=== PATIENT | female | born 1940 | race Native Hawaiian/Other Pacific Islander ===

== ENCOUNTER 2016-03-18 10:14 | Inpatient (IN) | payer OTHER ==
[~2016-03-18 10:14] MED LIST: ACET-206 PO; ALLO100T22 PO; ASA LO-DOSE81 MG PO; CALCIUM + D600 MG PO; CELEBREX200 MG PO; COUGH100 MG/5 M PO; FURO40TA93 PO; MAGNSUS68 PO; METOPROLOL25 MG PO; POLY3350 PO; RANITIDINE150 M1 PO; SENNA-PLUS1 TAB PO; VITAMIN C500 M6 PO
[2016-05-18] MEDS ORDERED: CALCIUM + D600 MG OR (10:34)
[2016-05-18] MEDS ORDERED: CELEBREX200 MG PO (10:34)
[2016-05-18] MEDS ORDERED: ISOS30TA17 PO (10:35)
[2016-05-18] MEDS ORDERED: CELEXA20 MG PO (10:35)
[2016-05-18] MEDS ORDERED: FURO40TA93 PO (10:36)
[2016-05-18] MEDS ORDERED: GABA300C2 PO (10:37)
[2016-05-18] MEDS ORDERED: MULTIVITAMIN OR (10:37)
[2016-05-18] MEDS ORDERED: OXYB5TAB56 PO (10:37)
[2016-05-18] MEDS ORDERED: LAXATIVE1 TAB OR (10:38)
[2016-05-18] MEDS ORDERED: SINGULAIR10 MG PO (10:39)
[2016-05-18] MEDS ORDERED: SYSTANE GEL1 ML OP (10:40)
[2016-05-18] MEDS ORDERED: ZANTAC300 MG PO (10:41)
[2016-05-18] MEDS ORDERED: ALLO100T22 PO (10:41)
[2016-05-18] MEDS ORDERED: FENT25DI TD (10:42)
[2016-05-18] MEDS ORDERED: VITAMIN C1 CH1 PO (10:42)
[2016-05-18] MEDS ORDERED: ACID REDUCER150 MG OR (17:12)
[2016-05-18] MEDS ORDERED: GUIATUSS100 MG/5 M PO (17:16)
[2016-05-18] MEDS ORDERED: MAGNSUS68 PO (17:17)
[2016-05-18] MEDS ORDERED: POLYETH GLYC3350 N1 OR (17:18)
[2016-05-18] MEDS ORDERED: TYLENOL325 MG OR (17:20)
[2016-05-18] MEDS ORDERED: VALTREX1 GM PO (17:21)
[2016-05-18] MEDS ORDERED: FLUT0.05 NAS (17:22)
[2016-05-18] MEDS ORDERED: ONDA4TAB3 PO (17:25)
[2016-05-18] MEDS ORDERED: HYDR25CA25 PO (17:26)
[2016-05-18] MEDS ORDERED: ARTIFI TEARS OP (17:28)
[2016-05-18] MEDS ORDERED: ALBUSOL IN (17:29)
[2016-05-18] MEDS ORDERED: HYDR-3182 PO (17:32)
== END 2016-04-18 08:00 | disposition still patient (30) ==
LOC: PAVC 10:14
PROVIDERS: ADMIT Internal Medicine
DX: Z51.89 Encounter for other specified aftercare (principal)

== ENCOUNTER 2016-04-18 09:00 | Inpatient (IN) | payer OTHER ==
[2016-05-18] MEDS ORDERED: CALCIUM + D600 MG OR ×2 (10:34)
[2016-05-18] MEDS ORDERED: CELEBREX200 MG PO ×2 (10:34)
[2016-05-18] MEDS ORDERED: CELEXA20 MG PO ×2 (10:35)
[2016-05-18] MEDS ORDERED: ISOS30TA17 PO ×2 (10:35)
[2016-05-18] MEDS ORDERED: FURO40TA93 PO ×2 (10:36)
[2016-05-18] MEDS ORDERED: MULTIVITAMIN OR ×2 (10:37)
[2016-05-18] MEDS ORDERED: OXYB5TAB56 PO ×2 (10:37)
[2016-05-18] MEDS ORDERED: GABA300C2 PO ×2 (10:37)
[2016-05-18] MEDS ORDERED: LAXATIVE1 TAB OR ×2 (10:38)
[2016-05-18] MEDS ORDERED: SINGULAIR10 MG PO ×2 (10:39)
[2016-05-18] MEDS ORDERED: SYSTANE GEL1 ML OP ×2 (10:40)
[2016-05-18] MEDS ORDERED: ALLO100T22 PO ×2 (10:41)
[2016-05-18] MEDS ORDERED: ZANTAC300 MG PO ×2 (10:41)
[2016-05-18] MEDS ORDERED: FENT25DI TD ×2 (10:42)
[2016-05-18] MEDS ORDERED: VITAMIN C1 CH1 PO ×2 (10:42)
[2016-05-18] MEDS ORDERED: ACID REDUCER150 MG OR ×2 (17:12)
[2016-05-18] MEDS ORDERED: GUIATUSS100 MG/5 M PO ×2 (17:16)
[2016-05-18] MEDS ORDERED: MAGNSUS68 PO ×2 (17:17)
[2016-05-18] MEDS ORDERED: POLYETH GLYC3350 N1 OR ×2 (17:18)
[2016-05-18] MEDS ORDERED: TYLENOL325 MG OR ×2 (17:20)
[2016-05-18] MEDS ORDERED: VALTREX1 GM PO ×2 (17:21)
[2016-05-18] MEDS ORDERED: FLUT0.05 NAS ×2 (17:22)
[2016-05-18] MEDS ORDERED: ONDA4TAB3 PO ×2 (17:25)
[2016-05-18] MEDS ORDERED: HYDR25CA25 PO ×2 (17:26)
[2016-05-18] MEDS ORDERED: ARTIFI TEARS OP ×2 (17:28)
[2016-05-18] MEDS ORDERED: ALBUSOL IN ×2 (17:29)
[2016-05-18] MEDS ORDERED: HYDR-3182 PO ×2 (17:32)
== END 2016-05-19 12:35 | disposition still patient (30) ==
LOC: PAVC 09:00
PROVIDERS: ADMIT Internal Medicine
DX: Z51.89 Encounter for other specified aftercare (principal)

== ENCOUNTER 2016-05-05 02:43 | Outpatient (CLI) | payer OTHER ==
[2016-05-18] MEDS ORDERED: CALCIUM + D600 MG OR (10:34)
[2016-05-18] MEDS ORDERED: CELEBREX200 MG PO (10:34)
[2016-05-18] MEDS ORDERED: CELEXA20 MG PO (10:35)
[2016-05-18] MEDS ORDERED: ISOS30TA17 PO (10:35)
[2016-05-18] MEDS ORDERED: FURO40TA93 PO (10:36)
[2016-05-18] MEDS ORDERED: OXYB5TAB56 PO (10:37)
[2016-05-18] MEDS ORDERED: MULTIVITAMIN OR (10:37)
[2016-05-18] MEDS ORDERED: GABA300C2 PO (10:37)
[2016-05-18] MEDS ORDERED: LAXATIVE1 TAB OR (10:38)
[2016-05-18] MEDS ORDERED: SINGULAIR10 MG PO (10:39)
[2016-05-18] MEDS ORDERED: SYSTANE GEL1 ML OP (10:40)
[2016-05-18] MEDS ORDERED: ZANTAC300 MG PO (10:41)
[2016-05-18] MEDS ORDERED: ALLO100T22 PO (10:41)
[2016-05-18] MEDS ORDERED: VITAMIN C1 CH1 PO (10:42)
[2016-05-18] MEDS ORDERED: FENT25DI TD (10:42)
[2016-05-18] MEDS ORDERED: ACID REDUCER150 MG OR (17:12)
[2016-05-18] MEDS ORDERED: GUIATUSS100 MG/5 M PO (17:16)
[2016-05-18] MEDS ORDERED: MAGNSUS68 PO (17:17)
[2016-05-18] MEDS ORDERED: POLYETH GLYC3350 N1 OR (17:18)
[2016-05-18] MEDS ORDERED: TYLENOL325 MG OR (17:20)
[2016-05-18] MEDS ORDERED: VALTREX1 GM PO (17:21)
[2016-05-18] MEDS ORDERED: FLUT0.05 NAS (17:22)
[2016-05-18] MEDS ORDERED: ONDA4TAB3 PO (17:25)
[2016-05-18] MEDS ORDERED: HYDR25CA25 PO (17:26)
[2016-05-18] MEDS ORDERED: ARTIFI TEARS OP (17:28)
[2016-05-18] MEDS ORDERED: ALBUSOL IN (17:29)
[2016-05-18] MEDS ORDERED: HYDR-3182 PO (17:32)
== END 2016-05-05 19:05 | disposition home or self-care (01) ==
LOC: LAB 02:43
DX: Z79.899 Other long term (current) drug therapy (principal); Z51.81 Encounter for therapeutic drug level monitoring
CPT/HCPCS: 36415; 82310

== ENCOUNTER 2016-05-18 09:39 | Inpatient (IN) | payer OTHER ==
[2016-05-18] VITALS (28 sets, daily range): BP systolic 80–139; BP diastolic 46–89; TEMP 98.3–100; Ht 149.9 cm; Wt 80.5 kg
[~2016-05-18] VITALS: Ht 149.9 cm; Wt 80.5 kg
[2016-05-18 10:26] LABS: PLATELET COUNT 201 K/uL (152-353)
[2016-05-18 10:29] LABS: POTASSIUM 3.2 mmol/L (3.6-5.2)
[2016-05-18] MEDS ORDERED: CALCIUM + D600 MG OR ×2 (10:34)
[2016-05-18] MEDS ORDERED: CELEBREX200 MG PO ×2 (10:34)
[2016-05-18] MEDS ORDERED: ISOS30TA17 PO ×2 (10:35)
[2016-05-18] MEDS ORDERED: CELEXA20 MG PO ×2 (10:35)
[2016-05-18 10:36] LABS: PARTIAL THROMBOPLASTIN TIME 22.6 SECONDS (24.5-33.6)
[2016-05-18] MEDS ORDERED: FURO40TA93 PO ×2 (10:36)
[2016-05-18] MEDS ORDERED: OXYB5TAB56 PO ×2 (10:37)
[2016-05-18] MEDS ORDERED: GABA300C2 PO ×2 (10:37)
[2016-05-18] MEDS ORDERED: MULTIVITAMIN OR ×2 (10:37)
[2016-05-18] MEDS ORDERED: LAXATIVE1 TAB OR ×2 (10:38)
[2016-05-18] MEDS ORDERED: SINGULAIR10 MG PO ×2 (10:39)
[2016-05-18] MEDS ORDERED: SYSTANE GEL1 ML OP ×2 (10:40)
[2016-05-18] MEDS ORDERED: ALLO100T22 PO ×2 (10:41)
[2016-05-18] MEDS ORDERED: ZANTAC300 MG PO ×2 (10:41)
[2016-05-18] MEDS ORDERED: FENT25DI TD ×2 (10:42)
[2016-05-18] MEDS ORDERED: VITAMIN C1 CH1 PO ×2 (10:42)
--- NOTE | 2016-05-18 13:45 | NUR ---
PT TO ICU VIA STRETCHER FROM ER. PT ASSISTED TO ICU BED 2. PT ALERT & ORIENTED TO SELF. AGUIAR TO BSD WITH DK YELLOW CL URINE TO BSD. IV NS AT 125 INFUSING INTO L AC INSYTE.
--- NOTE | 2016-05-18 14:15 | NUR ---
PT WITH NOTED,CHUNKS OF WHITE MATERIAL IN HER MOUTH & ON HER LIPS.MOUTH CARE & DENTURES CLEANED OF 'PECANS IWAS EATING LAST NIGHT' PER PT & KATHERYN VIVEROS HULLS.PT'S SWALLOWING CHECKED & IS INTACT.
--- NOTE | 2016-05-18 15:15 | NUR ---
ASSESSMENT COMPLETED.PT DENIES PAIN.
--- NOTE | 2016-05-18 17:00 | NUR ---
[facility] STAFF BROUGHT PT HER GLASSES.
[2016-05-18] MEDS ORDERED: ACID REDUCER150 MG OR ×2 (17:12)
[2016-05-18] MEDS ORDERED: GUIATUSS100 MG/5 M PO ×2 (17:16)
[2016-05-18] MEDS ORDERED: MAGNSUS68 PO ×2 (17:17)
[2016-05-18] MEDS ORDERED: POLYETH GLYC3350 N1 OR ×2 (17:18)
[2016-05-18] MEDS ORDERED: TYLENOL325 MG OR ×2 (17:20)
[2016-05-18] MEDS ORDERED: VALTREX1 GM PO ×2 (17:21)
[2016-05-18] MEDS ORDERED: FLUT0.05 NAS ×2 (17:22)
[2016-05-18] MEDS ORDERED: ONDA4TAB3 PO ×2 (17:25)
[2016-05-18] MEDS ORDERED: HYDR25CA25 PO ×2 (17:26)
[2016-05-18] MEDS ORDERED: ARTIFI TEARS OP ×2 (17:28)
[2016-05-18] MEDS ORDERED: ALBUSOL IN ×2 (17:29)
[2016-05-18] MEDS ORDERED: HYDR-3182 PO ×2 (17:32)
--- NOTE | 2016-05-18 18:26 | NUR ---
PT ASSITED WITH EATING SUPPER PER REGIS PRESSLEY LPN.
--- NOTE | 2016-05-18 20:04 | NUR ---
1900-Received pt resting in bed quietly. No distress noted. VSS per monitor. Resp even and non labored. Knapp to BSD. Assessment completed at this time. Non pitting edema noted. NS infusing at 125cc/hr to LAC via 18g. No s/s of infiltration at this time. Pt alert and oriented at this time. Bed in lowest position. Call light within reach. Will continue to monitor.
--- NOTE | 2016-05-18 20:07 | NUR ---
1929-Discontinued IV to RH due to bleeding. Attempted to start 22g to LFA x2 sticks. Unsuccessful at this time.
--- NOTE | 2016-05-18 22:16 | NUR ---
7981-Spoke with Dr. Gaviria at this time about slowing fluids down and potassium level. Orders given at this time. Will continue to monitor.
[2016-05-18 22:38] LABS: POTASSIUM 3.3 mmol/L (3.6-5.2)
--- NOTE | 2016-05-18 22:46 | NUR ---
Notified Dr. Gaviria of lab results. Orders given at this time.
[2016-05-19] VITALS (21 sets, daily range): BP systolic 90–141; BP diastolic 48–116; TEMP 98.4–98.7
--- NOTE | 2016-05-19 02:03 | NUR ---
Pt resting in bed with eyes closed. No distress noted at this time. Will continue to monitor.
[2016-05-19 06:25] LABS: POTASSIUM 3.6 mmol/L (3.6-5.2)
--- NOTE | 2016-05-19 07:00 | NUR ---
PT RESTING WITH HOPB UP. DENIES PAIN OR DISTRESS.
[2016-05-19 07:37] LABS: PLATELET COUNT 153 K/uL (152-353)
--- NOTE | 2016-05-19 08:30 | NUR ---
PT FED BREAKFAST. SWALLOWING INTACT. ATE APPROX 10%.
--- NOTE | 2016-05-19 09:10 | NUR ---
I&O'S REPORTED TO EHVINICIO LANDRY RN/LUPE MUHAMMAD.
--- NOTE | 2016-05-19 09:45 | NUR ---
SPEECH THERAPY IN TO EVALUATE PT.
--- NOTE | 2016-05-19 11:40 | NUR ---
DR MUHAMMAD IN TO SEE PT. NEW ORDERS.
--- NOTE | 2016-05-19 11:56 | NUR ---
PT IN WITH PT.
--- NOTE | 2016-05-19 14:00 | NUR ---
NURSING STUDENTS GAVE PT A BATH. ORAL AND PERICARE GIVEN.
--- NOTE | 2016-05-19 15:18 | NUR ---
FAMILY AT BEDSIDE.
--- NOTE | 2016-05-19 17:00 | NUR ---
PT RESTING ON SIDE WITH HOB UP, EYES CLOSED. O2 SAT 97%.
--- NOTE | 2016-05-19 18:00 | NUR ---
FED PT MEAL. SMALL SWALLOWS TEA NO COUGHING.
--- NOTE | 2016-05-19 19:48 | NUR ---
PT RECEIVING RESP TREATMENT. PT WITH NO COMPLAINTS. O2 ON AT 2L NC. PT WITH UNPRODUCTIVE COUGH. NS INFUSING AT 75 ML/HR. PT PREFERS ADDITIONAL BLANKETS TO HER LOWER EXT. REPOSITIONED PT UP IN BED. AGUIAR INTACT WITH URINE DRAINING. PT PRESENTLY WATCHING TV.
--- NOTE | 2016-05-19 21:03 | NUR ---
PT TALKING TO HER SISTER ON THE PHONE. HYDROCODONE WAS GIVEN FOR COMPLAINTS OF PAIN--OA.
--- NOTE | 2016-05-19 22:26 | NUR ---
PT RESTING WITH EYES CLOSED. CN WITH SR.
[2016-05-20] VITALS (14 sets, daily range): BP systolic 90–121; BP diastolic 48–88; TEMP 98–98.4
--- NOTE | 2016-05-20 00:52 | NUR ---
PT WAS PROVIDE SOMETHING TO DRINK AND ORAL CARE WAS GIVEN. PT WAS ALSO REPOSTIONED AT THIS TIME.
--- NOTE | 2016-05-20 05:19 | NUR ---
PT DRANK LIQUIDS. REPOSITIONED. LOWER EXT ELEVATED WITH HEELS FLOATING.
--- NOTE | 2016-05-20 05:56 | NUR ---
PT AWAKE. POSITIONED HF. PT WANTED TO FINISH EATING HER DESERT. PT ATE 100 PERCENT. NO COMPLAINTS VOICED.
--- NOTE | 2016-05-20 06:35 | NUR ---
PT'S BLOOD WAS DRAWN FOR AM LABS. USED RIGHT HAND WITH BUTTERFLY. APPLIED COTTONBALL AND TAPE WITH PAPER TAPE. NO BRUSING NOTED. NOTED BRUSING TO PT'S RIGHT ANTECUBITAL.
[2016-05-20 06:44] LABS: PLATELET COUNT 129 K/uL (152-353)
[2016-05-20 07:16] LABS: POTASSIUM 3.1 mmol/L (3.6-5.2)
--- NOTE | 2016-05-20 07:30 | NUR ---
AM ASSESSMENT DONE. NAD NOTED AT THIS TIME.
--- NOTE | 2016-05-20 08:15 | NUR ---
FED PT BREAKFAST. PT ATE 50%. MEDS GIVEN. WILL CONTINUE TO MONITOR.
--- NOTE | 2016-05-20 08:50 | NUR ---
RT HERE FOR BREATHING TX.
--- NOTE | 2016-05-20 09:15 | NUR ---
PT C/O L ARM HURTING ABOVE IV SITE. PT HAS POTASSIUM INFUSING. POTASSIUM SLOWED DOWN.
--- NOTE | 2016-05-20 09:21 | NUR ---
EH LANDRY RN HERE TO SEE PT.
--- NOTE | 2016-05-20 09:30 | NUR ---
POTASSIUM INFUSING AT 25ML/HR. PT STATED ARM FELT BETTER. WILL CONTINUE TO MONITOR.
--- NOTE | 2016-05-20 09:54 | NUR ---
PT RESTING QUIETLY WITH EYES CLOSED. WILL CONTINUE TO MONITOR.
--- NOTE | 2016-05-20 10:30 | NUR ---
PT SIPPING ON PEPSI. NAD NOTED AT THIS TIME.
--- NOTE | 2016-05-20 10:46 | NUR ---
PT C/O R ANKLE PAIN AND LIP PAIN. WILL NOTIFY DR. MUHAMMAD.
--- NOTE | 2016-05-20 11:20 | NUR ---
DR. MUHAMMAD HERE TO SEE PT.
--- NOTE | 2016-05-20 12:28 | NUR ---
PT ATE 75% OF LUNCH. NAD NOTED AT THIS TIME.
--- NOTE | 2016-05-20 12:47 | NUR ---
RT HERE FOR BREATHING TX. PHYSICAL THERAPY AT BEDSIDE.
--- NOTE | 2016-05-20 13:07 | NUR ---
BONNIE VALLES AT BEDSIDE FOR VITAL STEM NMES.
--- NOTE | 2016-05-20 13:34 | NUR ---
PROCEDURE COMPLETED. PT NATALIE WELL.
--- NOTE | 2016-05-20 15:09 | NUR ---
GAVE REPORT TO SULMA BILL RN. PT WILL BE TRANSFERRED TO ROOM 1103 VIA BED IN STABLE [place].
--- NOTE | 2016-05-20 15:09 | NUR ---
NEW IV STARTED TO R AC X 2 ATTEMPTS. 22G TO R AC. PT TOLERATED WELL. IV LINE STARTED TO INFUSE ANTIBIOTICS WHILE K-RIDER INFUSING.
--- NOTE | 2016-05-20 15:24 | NUR ---
PT TO TOOM 1103 AT THIS TIME VIA BED. NAD NOTED. ORIENTED PT TO ROOM AND CONTROLS. PT VERBALIZES UNDERSTANDING. CALL LIGHT WITHIN REACH AND BED IN LOWEST POSITION.
[2016-05-21] VITALS: BP 124/64; TEMP 98.1
[2016-05-21 04:00] VITALS: BP 102/47; TEMP 98.3
[2016-05-21 05:10] LABS: PLATELET COUNT 136 K/uL (152-353)
[2016-05-21 05:22] LABS: POTASSIUM 3.8 mmol/L (3.6-5.2)
[2016-05-21 08:00] VITALS: BP 141/63; TEMP 98.2
[2016-05-21 12:00] VITALS: BP 130/72; TEMP 98
--- NOTE | 2016-05-21 14:01 | NUR ---
1400 REPORT GIVEN TO JAYDEN AT [facility]
--- NOTE | 2016-05-21 15:20 | NUR ---
1430 PT TRANSFERRED BACK TO [facility] VIA WC. NO DISTRESS NOTED
== END 2016-05-21 14:30 | DRG 871 ==
LOC: ED 09:39 → ICU 12:27 → MED/SURG 05-20 15:25
PROVIDERS: Internal Medicine; ADMIT Specialist
DX: A41.89 Other specified sepsis (principal); J18.8 Other pneumonia, unspecified organism; N18.4 Chronic kidney disease, stage 4 (severe); E83.52 Hypercalcemia; Y95 Nosocomial condition; E86.0 Dehydration; D64.89 Other specified anemias; M89.8X8 Other specified disorders of bone, other site; I48.91 Unspecified atrial fibrillation; M15.8 Other polyosteoarthritis; M81.8 Other osteoporosis without current pathological fracture; I95.89 Other hypotension
CPT/HCPCS: 36415; 36600; 51702; 80048; 80053; 80202; 81000; 82232; 82550; 82570; 82607; 82805; 83605; 83735; 84165; 84166; 84300; 84484; 85027; 85379; 85610; 85730; 87040; 87088; 87804; 93005; 94640; 94664; 94760; 96365; 96372; 96376; 99285; J1644; J1720; J1956; J2543; J3490

== ENCOUNTER 2016-05-19 12:52 | Inpatient (IN) | payer OTHER ==
[~2016-05-19] VITALS: Ht 149.9 cm; Wt 80.5 kg
[~2016-05-19 12:52] MED LIST changes: +ACID REDUCER150 MG OR; +ALBUSOL IN; +ARTIFI TEARS OP; +CALCIUM + D600 MG OR; +CELEXA20 MG PO; +FENT25DI TD; +FLUT0.05 NAS; +GABA300C2 PO; +GUIATUSS100 MG/5 M PO; +HYDR-3182 PO; +HYDR25CA25 PO; +ISOS30TA17 PO; +LAXATIVE1 TAB OR; +MULTIVITAMIN OR; +ONDA4TAB3 PO; +OXYB5TAB56 PO; +POLYETH GLYC3350 N1 OR; +SINGULAIR10 MG PO; +SYSTANE GEL1 ML OP; +TYLENOL325 MG OR; +VALTREX1 GM PO; +VITAMIN C1 CH1 PO; +ZANTAC300 MG PO
== END 2016-06-16 13:21 | disposition still patient (30) ==
LOC: PAVC 12:52
PROVIDERS: ADMIT Internal Medicine
DX: M62.81 Muscle weakness (generalized) (principal); R26.89 Other abnormalities of gait and mobility; R13.12 Dysphagia, oropharyngeal phase; J18.9 Pneumonia, unspecified organism; A41.9 Sepsis, unspecified organism; I25.6 Silent myocardial ischemia; R09.02 Hypoxemia; I48.91 Unspecified atrial fibrillation

== ENCOUNTER 2016-06-03 13:22 | Outpatient (CLI) | payer OTHER | END 2016-06-03 19:17 | disposition home or self-care (01) | LOC: RAD 13:22 | DX: R05 Cough (principal); R07.89 Other chest pain ==

== ENCOUNTER 2016-06-14 16:42 | Outpatient (CLI) | payer OTHER | END 2016-06-15 02:04 | disposition home or self-care (01) | LOC: RAD 16:42 | DX: R05 Cough (principal); R09.02 Hypoxemia ==

== ENCOUNTER 2016-06-15 05:02 | Outpatient (CLI) | payer OTHER ==
[~2016-06-15] VITALS: Ht 149.9 cm; Wt 78.2 kg
[2016-06-15 11:00] VITALS: BP 135/64; TEMP 98.8
== END 2016-06-15 19:19 | disposition home or self-care (01) ==
LOC: INF 05:02 → LAB 05:02 → INF 14:00
DX: M81.0 Age-related osteoporosis without current pathological fracture (principal)
CPT/HCPCS: 36415; 82310; 96372; J0897

== ENCOUNTER 2016-06-16 11:00 | Outpatient (CLI) | payer OTHER | END 2016-06-16 22:51 | disposition home or self-care (01) | LOC: LAB 11:00 | DX: M81.0 Age-related osteoporosis without current pathological fracture (principal); R06.02 Shortness of breath; R09.02 Hypoxemia | CPT/HCPCS: 83880 ==

== ENCOUNTER 2016-06-16 13:36 | Inpatient (IN) | payer OTHER | END 2016-07-17 08:13 | disposition still patient (30) | LOC: PAVC 13:36 | PROVIDERS: ADMIT Internal Medicine | DX: Z51.89 Encounter for other specified aftercare (principal) ==

== ENCOUNTER 2016-06-17 10:10 | Outpatient (CLI) | payer OTHER | END 2016-06-17 19:31 | disposition home or self-care (01) | LOC: RESP 10:10 | DX: J68.1 Pulmonary edema due to chemicals, gases, fumes and vapors (principal); R09.02 Hypoxemia; R06.02 Shortness of breath | CPT/HCPCS: 93306 ==

== ENCOUNTER 2016-06-30 17:05 | Outpatient (CLI) | payer OTHER ==
[2016-06-30 18:04] LABS: PLATELET COUNT 187 K/uL (152-353)
[2016-06-30 18:43] LABS: POTASSIUM 3.2 mmol/L (3.6-5.2)
== END 2016-06-30 19:32 | disposition home or self-care (01) ==
LOC: LAB 17:05
PROVIDERS: Internal Medicine
DX: J96.91 Respiratory failure, unspecified with hypoxia (principal); R41.82 Altered mental status, unspecified
CPT/HCPCS: 80048; 81000; 83880; 85027; 87077; 87086; 87088; 87186

== ENCOUNTER 2016-07-12 09:48 | Outpatient (CLI) | payer OTHER | END 2016-07-12 19:23 | disposition home or self-care (01) | LOC: RAD 09:48 | DX: M25.512 Pain in left shoulder (principal); M25.511 Pain in right shoulder ==

== ENCOUNTER 2016-07-17 08:37 | Inpatient (IN) | payer OTHER | END 2016-08-16 10:56 | disposition still patient (30) | LOC: PAVC 08:37 | PROVIDERS: ADMIT Internal Medicine | DX: Z51.89 Encounter for other specified aftercare (principal) ==

== ENCOUNTER 2016-07-23 03:06 | Outpatient (CLI) | payer OTHER ==
[2016-07-23 04:31] LABS: POTASSIUM 3.3 mmol/L (3.6-5.2)
== END 2016-07-23 19:04 | disposition home or self-care (01) ==
LOC: LAB 03:06
PROVIDERS: Internal Medicine
DX: I10 Essential (primary) hypertension (principal); M10.9 Gout, unspecified
CPT/HCPCS: 80053; 84550

== ENCOUNTER 2016-07-29 04:49 | Outpatient (CLI) | payer OTHER | END 2016-07-29 19:43 | disposition home or self-care (01) | LOC: LAB 04:49 | DX: M10.9 Gout, unspecified (principal) | CPT/HCPCS: 84550 ==

== ENCOUNTER 2016-08-14 15:29 | Outpatient (CLI) | payer OTHER | END 2016-08-14 19:58 | disposition home or self-care (01) | LOC: LAB 15:29 | DX: Z16.24 Resistance to multiple antibiotics (principal) | CPT/HCPCS: 87081 ==

== ENCOUNTER 2016-08-16 11:22 | Inpatient (IN) | payer OTHER | END 2016-09-16 10:45 | disposition still patient (30) | LOC: PAVC 11:22 | PROVIDERS: ADMIT Internal Medicine | DX: Z51.89 Encounter for other specified aftercare (principal) ==

== ENCOUNTER 2016-08-26 20:14 | Outpatient (CLI) | payer OTHER | END 2016-08-26 22:00 | disposition home or self-care (01) | LOC: RAD 20:14 | DX: M79.642 Pain in left hand (principal) ==

== ENCOUNTER 2016-08-31 05:25 | Outpatient (CLI) | payer OTHER | END 2016-08-31 19:42 | disposition home or self-care (01) | LOC: LAB 05:25 | DX: M06.4 Inflammatory polyarthropathy (principal) | CPT/HCPCS: 36415; 84550 ==

== ENCOUNTER 2016-08-31 08:04 | Outpatient (CLI) | payer OTHER | END 2016-08-31 19:42 | disposition home or self-care (01) | LOC: NM 08:04 | DX: I10 Essential (primary) hypertension (principal); E78.4 Other hyperlipidemia | CPT/HCPCS: A9500; J2785 ==

== ENCOUNTER 2016-09-16 10:59 | Inpatient (IN) | payer OTHER ==
[2016-09-24] MEDS ORDERED: FURO40TA93 PO (19:27)
[2016-09-24] MEDS ORDERED: SPIR50TA8 PO (19:29)
[2016-09-24] MEDS ORDERED: CELEXA10 MG PO (19:30)
[2016-09-24] MEDS ORDERED: DENO60SO SC (19:52)
[2016-09-24] MEDS ORDERED: NITR100C56 PO (19:54)
[2016-09-24] MEDS ORDERED: PROM25TA52 PO (19:55)
[2016-09-24] MEDS ORDERED: TRAM50TA PO (19:57)
[2016-09-24] MEDS ORDERED: DELSYM30 MG/5 M1 PO (20:00)
[2016-10-15 14:31] LABS: POTASSIUM 3.5 mmol/L (3.6-5.2)
== END 2016-10-16 16:09 | disposition still patient (30) ==
LOC: PAVC 10:59
PROVIDERS: ADMIT Internal Medicine
DX: Z51.89 Encounter for other specified aftercare (principal)
CPT/HCPCS: 80053

== ENCOUNTER 2016-09-24 09:04 | Outpatient (CLI) | payer OTHER ==
[2016-09-24 10:29] LABS: PLATELET COUNT 197 K/uL (152-353)
[2016-09-24 10:51] LABS: POTASSIUM 3.5 mmol/L (3.6-5.2)
[2016-09-24] MEDS ORDERED: FURO40TA93 PO (19:27)
[2016-09-24] MEDS ORDERED: SPIR50TA8 PO (19:29)
[2016-09-24] MEDS ORDERED: CELEXA10 MG PO (19:30)
[2016-09-24] MEDS ORDERED: DENO60SO SC (19:52)
[2016-09-24] MEDS ORDERED: NITR100C56 PO (19:54)
[2016-09-24] MEDS ORDERED: PROM25TA52 PO (19:55)
[2016-09-24] MEDS ORDERED: TRAM50TA PO (19:57)
[2016-09-24] MEDS ORDERED: DELSYM30 MG/5 M1 PO (20:00)
== END 2016-09-24 19:26 | disposition home or self-care (01) ==
LOC: LAB 09:04 → CT 09:04
PROVIDERS: Internal Medicine
DX: R05 Cough (principal); R06.02 Shortness of breath
CPT/HCPCS: 80048; 83880; 85027

== ENCOUNTER 2016-09-24 16:12 | Inpatient (IN) | payer OTHER ==
[2016-09-24] VITALS (12 sets, daily range): BP systolic 114–167; BP diastolic 70–96; TEMP 96.7–98.3; Ht 149.9 cm; Wt 72.1 kg
[~2016-09-24] VITALS: Ht 149.9 cm; Wt 72.1 kg
--- NOTE | 2016-09-24 15:47 | NUR ---
PT DIRECT ADMIT TO [facility]. LETHARGIC. ASSISTED TO BED.
--- NOTE | 2016-09-24 16:27 | NUR ---
DR ANAND IN TO SEE PT,PT LETHARGIC,RESPONDS VERY LITTLE & SLOWLY. RT IN FOR ABG. ATTEMPTED IV X 2,UNSUCCESFUL.
--- NOTE | 2016-09-24 16:40 | NUR ---
22G LW X2 ATTEMPTS, ATTEMPTED LAB DRAW W/O SUCCESS.
--- NOTE | 2016-09-24 16:47 | NUR ---
18FR AGUIAR CATH INSERTED, CLOUDY YELLOW URINE RETURN. PT TOLERATED WELL
--- NOTE | 2016-09-24 16:52 | NUR ---
LAB DRAW, PER LAB
--- NOTE | 2016-09-24 16:55 | NUR ---
LABS DRAWN PER ALUMNI RELATIONS MANAGER.
[2016-09-24 16:58] LABS: PLATELET COUNT 200 K/uL (152-353)
[2016-09-24 17:12] LABS: POTASSIUM 3.4 mmol/L (3.6-5.2)
--- NOTE | 2016-09-24 17:30 | NUR ---
LABS CALLED TO [facility] ANAND PER LUKE GOLDMAN LPN/LUPE/ DR ANAND. NEW ORDERS.
--- NOTE | 2016-09-24 18:10 | NUR ---
ASSESSMENT PER AYDEE HAJI RN, NOTED & REMOVED FENTANYL 25 MCG PATCH REMOVED FROM PT'S BACK.
--- NOTE | 2016-09-24 18:11 | NUR ---
PHARM D CALLED TO DISCUSS MED CHANGES,REPORTED TO DR ANAND. NEW ORDERS.
--- NOTE | 2016-09-24 18:34 | NUR ---
LARGE BRUISE TO L EYE. REDENED AREA TO INNER UPPER L THIGH. RED AREA TO POSTERIOR UPPER R THIGH.
--- NOTE | 2016-09-24 19:00 | NUR ---
Received pt resting on BIPAP. No distress noted at this time. Resp even and non labored. Lung sounds diminished throughout. Knapp to BSD. Assessment completed. VSS per monitor. Bed in lowest position. Call light within reach. Will continue to monitor.
[2016-09-24] MEDS ORDERED: FURO40TA93 PO (19:27)
[2016-09-24] MEDS ORDERED: SPIR50TA8 PO (19:29)
[2016-09-24] MEDS ORDERED: CELEXA10 MG PO (19:30)
[2016-09-24] MEDS ORDERED: DENO60SO SC (19:52)
[2016-09-24] MEDS ORDERED: NITR100C56 PO (19:54)
[2016-09-24] MEDS ORDERED: PROM25TA52 PO (19:55)
[2016-09-24] MEDS ORDERED: TRAM50TA PO (19:57)
[2016-09-24] MEDS ORDERED: DELSYM30 MG/5 M1 PO (20:00)
--- NOTE | 2016-09-24 21:22 | NUR ---
Dr. Caputo notified of urine output. No orders given at this time. Will continue to monitor.
[2016-09-25] VITALS (24 sets, daily range): BP systolic 110–149; BP diastolic 58–99; TEMP 97.3–97.7
--- NOTE | 2016-09-25 02:00 | NUR ---
PATIENT IS ASLEEP AND AWAKE TO VOICE AND STEMULI. NO ACUTE DISTRESS OR COMPLAINTS. WILL CONTINUE TO MONITOR.
--- NOTE | 2016-09-25 06:00 | NUR ---
AT PATIENT BEDSIDE FOR LAB DRAWS. PATIENT ALERT WITH RESPIRATORY AT BEDSIDE FOR ABG DRAWS. NO COMPLAINTS OR ACUTE DISTRESS NOTED.
[2016-09-25 06:46] LABS: PLATELET COUNT 174 K/uL (152-353)
--- NOTE | 2016-09-25 07:00 | NUR ---
REPORT FROM PM STAFF. PT RESTING ON BIPAP WITH EYES CLOSED. WILL MUMBLE WHEN NAME CALLED, THEN BACK TO SLEEP IMMEDIATELY.
[2016-09-25 07:19] LABS: POTASSIUM 3.1 mmol/L (3.6-5.2)
--- NOTE | 2016-09-25 09:00 | NUR ---
PT'S SON CALLED TO CK ON HER.
--- NOTE | 2016-09-25 11:30 | NUR ---
DR ANAND IN TO SEE PT. NEW ORDERS.
--- NOTE | 2016-09-25 14:34 | NUR ---
PT TAKEN OFF BIPAP AT THIS TIME 1400 TO TRY ON NASAL CANULA. WILL CONITNUE TO MONITOR.
--- NOTE | 2016-09-25 16:00 | NUR ---
BAG 3 OF K+ 10MEQ COMPLETED. DR ANAND NOTIFIED. NEW ORDE TO DRAW LABS.
--- NOTE | 2016-09-25 16:25 | NUR ---
LAB RESULTS TO DR ANAND. ORDER TO ONLY INFUSE 1 MORE 10- MEQ K+ K RIDER.
--- NOTE | 2016-09-25 16:50 | NUR ---
BAG 3 OF [address] MEQ K+ COMPLETED. DR ANAND NOTIFIED. NEW ORDERS FOR LAB DRAW.
--- NOTE | 2016-09-25 19:28 | NUR ---
Received pt resting in bed quietly. No distress noted. VSS per monitor. Pt on NC at 4L/min. O2 sat of 98% at this time. Pt drowsy but awakens to voice. Assessment completed at this time. Knapp to BSD with clear yellow urine noted. NS infusing at 150cc/hr via 22g to LW. No s/s of infiltration noted. Resp even and non labored. Lung sounds clear and diminished. Bed in lowest position. Will continue to monitor.
--- NOTE | 2016-09-25 20:59 | NUR ---
Dr. Caputo notified of pt starting to sound wet. Orders given to decrease fluids from 150cc/hr to 100cc/hr at this time. Will continue to monitor.
--- NOTE | 2016-09-25 23:38 | NUR ---
Pt resting in bed with eyes closed on BIPAP. No distress noted. Will continue to monitor.
[2016-09-26] VITALS (25 sets, daily range): BP systolic 99–150; BP diastolic 53–91; TEMP 96.8–98.6
--- NOTE | 2016-09-26 01:57 | NUR ---
No change in assessment at this time. VSS per monitor. No distress noted. Will continue to monitor.
--- NOTE | 2016-09-26 05:57 | NUR ---
Morning labs drawn at this time. Pt tolerated well. No acute distress noted. VSS per monitor. Pt repositioned in bed. Will continue to monitor.
[2016-09-26 06:20] LABS: PLATELET COUNT 163 K/uL (152-353)
[2016-09-26 06:22] LABS: POTASSIUM 3.3 mmol/L (3.6-5.2)
--- NOTE | 2016-09-26 07:30 | NUR ---
AM ASSESSMENT COMPLETE
--- NOTE | 2016-09-26 08:19 | NUR ---
NOTED PTS HR 35 FOR SIX SECONDS THEN HR 45-60. WILL CONT TOO MONITOR. BP WNL
--- NOTE | 2016-09-26 10:30 | NUR ---
BIPAP REMOVED. PT PLACED ON 2LNC
--- NOTE | 2016-09-26 12:50 | NUR ---
DR ANAND INFORMED THAT PT HAS DECREASE IN HR AT TIMES, LOW 35, HOWEVER HR IS 35-75.
--- NOTE | 2016-09-26 12:50 | NUR ---
DR ANAND IN TO SEE PT. PT AROUSES TO VERBAL STIMULI.
--- NOTE | 2016-09-26 13:57 | NUR ---
PT TAKEN OFF BIPAP AT 1030 AM TOLERATED WELL. PLACED ON 2LNC..
--- NOTE | 2016-09-26 15:30 | NUR ---
EXTENSIVE ORAL CARE DONE. PT TOLERATED WELL
--- NOTE | 2016-09-26 17:53 | NUR ---
IV FLUIDS INFUSING W/O DIFF. 02 @2L NC, SATS 97%. PT ABLE TO FOLLOW COMMANDS, COUGHS WHEN ASKED. MARIAN HEELS FLOATING. HOB UP. AGUIAR TO BSD W/CLEAR YELLOW URINE.
--- NOTE | 2016-09-26 17:59 | NUR ---
LANTISEPTIC APPLIED TO BUTTOCK
--- NOTE | 2016-09-26 19:45 | NUR ---
PM ASSESSMENT COMPLETED. PT ASKING NURSE FOR SOMETHING TO DRINK. NURSE EXPLAINED NPO DUE TO SPEECH THERAPY CONSULT TO ASSESS SWALLOWING. IV SITE TO LEFT WRIST WITHOUT REDNESS OR SWELLING. NS INFUSING AT 100CC/HR PER PUMP. AGUIAR DRAINING CLEAR URINE AT BEDSIDE. O2 AT 3 LITERS PER NASAL CANNULA. PT RESP RATE 18. NO DISTRESS NOTED.
--- NOTE | 2016-09-26 20:05 | NUR ---
PARTIAL BEDBATH GIVEN AT THIS TIME. PT TOLERATED WELL.
--- NOTE | 2016-09-26 20:20 | NUR ---
RESPIRATORY THERAPIST AT BEDSIDE FOR BREATHING TREATMENT.
--- NOTE | 2016-09-26 20:37 | NUR ---
PT CONTINUES TO HAVE NON-PRODUCTIVE COUGH.
--- NOTE | 2016-09-26 21:50 | NUR ---
PT PLACED ON BI-PAP PER RESPIRATORY THERAPIST.
[2016-09-27] VITALS (13 sets, daily range): BP systolic 119–145; BP diastolic 68–98; TEMP 97.4–99.1
--- NOTE | 2016-09-27 00:34 | NUR ---
RESPIRATORY THERAPIST PRESENT FOR BREATHING TREATMENT.
--- NOTE | 2016-09-27 02:50 | NUR ---
PT RESTING QUIETLY WITH EYES CLOSED. BI-PAP IN PLACE
--- NOTE | 2016-09-27 04:59 | NUR ---
RESPIRATORY THERAPIST AT BEDSIDE. MASK ADJUSTED. O2 SAT 99%
--- NOTE | 2016-09-27 05:29 | NUR ---
ABG DRAWN PER RESPIRATORY THERAPIST
--- NOTE | 2016-09-27 05:43 | NUR ---
LABS DRAWN. TO LAB.
--- NOTE | 2016-09-27 05:47 | NUR ---
BI-PAP REMOVED. NASAL CANNULA AT 3 LITERS PLACED.
[2016-09-27 06:24] LABS: PLATELET COUNT 168 K/uL (152-353)
[2016-09-27 06:39] LABS: POTASSIUM 2.8 mmol/L (3.6-5.2)
--- NOTE | 2016-09-27 07:30 | NUR ---
PT REPOSITIONED. MOUTH CARE DONE. AM ASSESSMENT DONE. WILL CONTINUE TO MONITOR.
--- NOTE | 2016-09-27 08:15 | NUR ---
PT ON BED LUX. NO RESULTS. PT REPOSITIONED.
--- NOTE | 2016-09-27 08:51 | NUR ---
PT RECEIVING BREATHING TX. EH LANDRY RN HERE TO SEE PT. DR. ANAND NOTIFIED OF AM LABS AND PT C/O PAIN.
--- NOTE | 2016-09-27 09:08 | NUR ---
PT BACK ON BEDPAN.
--- NOTE | 2016-09-27 09:50 | NUR ---
HR 120'S. PT C/O OF PAIN ALL OVER. DR. ANAND AWARE. RECEIVED ORDER FOR FENTANYL PATCH.
--- NOTE | 2016-09-27 09:52 | NUR ---
PT OFF BED LUX. NO RESULTS.
--- NOTE | 2016-09-27 10:54 | NUR ---
BONNIE VALLES HERE TO SEE PT.
--- NOTE | 2016-09-27 11:28 | NUR ---
PT RECEIVING BREATHING TX.
--- NOTE | 2016-09-27 11:29 | NUR ---
HR 120-130'S. BREATHING TX STOPPED AT THIS TIME.
--- NOTE | 2016-09-27 11:41 | NUR ---
DR. ANAND HERE TO SEE PT.
--- NOTE | 2016-09-27 12:20 | NUR ---
DR. ANAND SPEAKING WITH DR. STUBBS ON PHONE.
--- NOTE | 2016-09-27 13:20 | NUR ---
[facility] CALLED WITH ROOM ASSIGNMENT. PT WILL BE TRANSFERRED TO DR. STUBBS/DR. ADAMS. PT INFORMED.
--- NOTE | 2016-09-27 13:37 | NUR ---
[facility] HERE FOR SKULL XRAY.
--- NOTE | 2016-09-27 13:45 | NUR ---
SPOKE WITH PT'S FAMILY ABOUT TRANSFER.
--- NOTE | 2016-09-27 14:00 | NUR ---
PT HAS STOOL IN RECTUM. HELPED PT HAVE A BM WITH DIGITAL REMOVAL. STOOL HARD LIKE ROCKS. HR 90'S. PT STATED SHE FELT BETTER.
--- NOTE | 2016-09-27 14:44 | NUR ---
BONNIE VALLES HERE TO SEE PT.
--- NOTE | 2016-09-27 14:56 | NUR ---
REPORT CALLED TO KRISTIAN DOWNEY RN AT [facility]. EMS NOTIFIED. BONNIE VALLES TOOK PT'S WATCH AND SHIRT BACK TO [facility].
--- NOTE | 2016-09-27 15:10 | NUR ---
PT OUT VIA EMS TO [facility] IN STABLE [place].
== END 2016-09-27 15:10 | disposition short-term general hospital (02) | DRG 640 ==
LOC: ICU 16:12
PROVIDERS: Emergency Medicine; ADMIT Internal Medicine
DX: E83.52 Hypercalcemia (principal); J18.8 Other pneumonia, unspecified organism; N39.0 Urinary tract infection, site not specified; N18.4 Chronic kidney disease, stage 4 (severe); E87.4 Mixed disorder of acid-base balance; E87.6 Hypokalemia; I12.9 Hypertensive chronic kidney disease with stage 1 through stage 4 chronic kidney disease, or unspecified chronic kidney disease; D64.89 Other specified anemias; E88.09 Other disorders of plasma-protein metabolism, not elsewhere classified; Y95 Nosocomial condition; R09.02 Hypoxemia; D72.828 Other elevated white blood cell count; I27.2 Other secondary pulmonary hypertension; R05 Cough; R06.02 Shortness of breath
CPT/HCPCS: 36415; 36600; 51702; 80048; 80053; 81000; 82570; 82805; 83735; 83880; 84132; 84133; 84300; 84540; 85027; 87077; 87086; 87088; 87186; 93005; 94640; 94664; 94760; 96361; 96367; 96375; J1940; J2270; J2930; J3480; J3489; J3490

== ENCOUNTER 2016-09-27 15:13 | Outpatient (CLI) | payer OTHER ==
[~2016-09-27 15:13] MED LIST changes: +CELEXA10 MG PO; +DELSYM30 MG/5 M1 PO; +DENO60SO SC; +NITR100C56 PO; +PROM25TA52 PO; +SPIR50TA8 PO; +TRAM50TA PO
== END 2016-09-27 16:19 | disposition short-term general hospital (02) ==
LOC: AMB 15:13
DX: E83.52 Hypercalcemia (principal); J18.8 Other pneumonia, unspecified organism; N39.0 Urinary tract infection, site not specified; N18.4 Chronic kidney disease, stage 4 (severe); E87.4 Mixed disorder of acid-base balance; E87.6 Hypokalemia; I12.9 Hypertensive chronic kidney disease with stage 1 through stage 4 chronic kidney disease, or unspecified chronic kidney disease; D64.89 Other specified anemias; E88.09 Other disorders of plasma-protein metabolism, not elsewhere classified; Y95 Nosocomial condition; R09.02 Hypoxemia; D72.828 Other elevated white blood cell count; I27.2 Other secondary pulmonary hypertension; R05 Cough; R06.02 Shortness of breath
CPT/HCPCS: A0425; A0427

== ENCOUNTER 2016-10-07 15:15 | Outpatient (CLI) | payer OTHER ==
[2016-10-07 15:39] LABS: PLATELET COUNT 230 K/uL (152-353); POTASSIUM 3.3 mmol/L (3.6-5.2)
== END 2016-10-07 20:05 | disposition home or self-care (01) ==
LOC: LAB 15:15
PROVIDERS: Internal Medicine
DX: E83.52 Hypercalcemia (principal)
CPT/HCPCS: 80053; 85027

== ENCOUNTER 2016-10-16 16:31 | Inpatient (IN) | payer OTHER ==
[2016-10-29 13:14] LABS: PLATELET COUNT 184 K/uL (152-353)
[2016-10-29 13:17] LABS: POTASSIUM 3.2 mmol/L (3.6-5.2)
== END 2016-11-16 12:59 | disposition still patient (30) ==
LOC: PAVC 16:31
PROVIDERS: ADMIT Internal Medicine
DX: M62.81 Muscle weakness (generalized) (principal); R13.12 Dysphagia, oropharyngeal phase; F32.9 Major depressive disorder, single episode, unspecified; R63.0 Anorexia; J12.9 Viral pneumonia, unspecified; E83.52 Hypercalcemia; I12.9 Hypertensive chronic kidney disease with stage 1 through stage 4 chronic kidney disease, or unspecified chronic kidney disease; N18.4 Chronic kidney disease, stage 4 (severe); F41.9 Anxiety disorder, unspecified; I10 Essential (primary) hypertension
CPT/HCPCS: 36415; 80048; 83880; 85027

== ENCOUNTER 2016-10-22 13:43 | Outpatient (CLI) | payer OTHER ==
[2016-10-22 14:03] LABS: POTASSIUM 3.3 mmol/L (3.6-5.2)
[2016-10-22 15:35] LABS: PLATELET COUNT 84 K/uL (152-353)
== END 2016-10-22 19:10 | disposition home or self-care (01) ==
LOC: LAB 13:43 → RAD 13:43 → LAB 19:10
PROVIDERS: Internal Medicine
DX: R05 Cough (principal); R50.9 Fever, unspecified; R73.9 Hyperglycemia, unspecified
CPT/HCPCS: 80048; 81000; 83036; 85027

== ENCOUNTER 2016-11-03 08:30 | Outpatient (CLI) | payer OTHER | END 2016-11-03 19:10 | disposition home or self-care (01) | LOC: RAD 08:30 | DX: J18.9 Pneumonia, unspecified organism (principal) ==

== ENCOUNTER 2016-11-06 10:04 | Inpatient (IN) | payer OTHER ==
[~2016-11-06] VITALS: Ht 157.5 cm; Wt 71.2 kg
[2016-11-06 10:28] VITALS: BP 114/91; TEMP 97.5
[2016-11-06 12:05] LABS: PLATELET COUNT 228 K/uL (152-353)
[2016-11-06 12:15] VITALS: BP 122/88
[2016-11-06 12:20] LABS: POTASSIUM 2.7 mmol/L (3.6-5.2); SODIUM 135 mmol/L (136-145)
[2016-11-06 14:31] VITALS: BP 102/64; TEMP 98.8; Ht 157.5 cm; Wt 71.2 kg
[2016-11-06 16:00] VITALS: BP 118/83; TEMP 97.4
[2016-11-06 20:00] VITALS: BP 113/65; TEMP 97.4
[2016-11-07] VITALS: BP 115/82; TEMP 97.9
[2016-11-07 04:00] VITALS: BP 117/72; TEMP 97.3
[2016-11-07 06:01] LABS: POTASSIUM 3.6 mmol/L (3.6-5.2); SODIUM 139 mmol/L (136-145)
[2016-11-07 06:14] LABS: PLATELET COUNT 230 K/uL (152-353)
[2016-11-07 08:00] VITALS: BP 122/86; TEMP 97.8
[2016-11-07 11:47] VITALS: BP 109/80; TEMP 98.3
[2016-11-07 16:00] VITALS: BP 96/63; TEMP 97.7
[2016-11-07 20:16] VITALS: BP 101/55; TEMP 98.5
[2016-11-08 04:00] VITALS: BP 110/73; TEMP 97.7
[2016-11-08 06:58] LABS: PLATELET COUNT 243 K/uL (152-353)
[2016-11-08 07:09] LABS: POTASSIUM 4.7 mmol/L (3.6-5.2); SODIUM 138 mmol/L (136-145)
[2016-11-08 08:00] VITALS: BP 100/74; TEMP 97.6
[2016-11-08 12:00] VITALS: BP 94/65; TEMP 97.8
[2016-11-08 16:16] VITALS: BP 98/72; TEMP 97.7
[2016-11-08 20:00] VITALS: BP 110/63; TEMP 97.6
[2016-11-09] VITALS: BP 113/68; TEMP 97.3
[2016-11-09 04:00] VITALS: BP 141/81; TEMP 97.7
[2016-11-09 06:31] LABS: PLATELET COUNT 281 K/uL (152-353)
[2016-11-09 06:54] LABS: POTASSIUM 4.9 mmol/L (3.6-5.2); SODIUM 132 mmol/L (136-145)
[2016-11-09 08:00] VITALS: BP 113/79; TEMP 99.1
[2016-11-09 12:00] VITALS: BP 98/59; TEMP 97.6
[2016-11-09 16:00] VITALS: BP 106/74; TEMP 97.8
[2016-11-09 20:00] VITALS: BP 116/87; TEMP 97.5
[2016-11-10] VITALS (13 sets, daily range): BP systolic 107–141; BP diastolic 51–89; TEMP 97.3–100
[2016-11-10 06:28] LABS: PLATELET COUNT 302 K/uL (152-353)
[2016-11-10 06:59] LABS: POTASSIUM 4.8 mmol/L (3.6-5.2); SODIUM 132 mmol/L (136-145)
[2016-11-11] VITALS (17 sets, daily range): BP systolic 89–119; BP diastolic 43–88; TEMP 98
[2016-11-11 06:38] LABS: PLATELET COUNT 299 K/uL (152-353)
[2016-11-11 06:58] LABS: SODIUM 134 mmol/L (136-145)
[2016-11-12] VITALS (41 sets, daily range): BP systolic 82–127; BP diastolic 46–92; TEMP 97.8–99
[2016-11-12 06:35] LABS: POTASSIUM 4.3 mmol/L (3.6-5.2); SODIUM 133 mmol/L (136-145)
[2016-11-12 06:59] LABS: PLATELET COUNT 297 K/uL (152-353)
[2016-11-13] VITALS (41 sets, daily range): BP systolic 82–132; BP diastolic 48–102; TEMP 97.3–99.6
[2016-11-13 06:04] LABS: PLATELET COUNT 293 K/uL (152-353)
[2016-11-13 06:28] LABS: POTASSIUM 4.4 mmol/L (3.6-5.2); SODIUM 135 mmol/L (136-145)
[2016-11-14] VITALS (23 sets, daily range): BP systolic 105–141; BP diastolic 57–91; TEMP 97.9–99.5
[2016-11-14 06:20] LABS: PLATELET COUNT 293 K/uL (152-353)
[2016-11-14 06:28] LABS: POTASSIUM 3.1 mmol/L (3.6-5.2); SODIUM 136 mmol/L (136-145)
[2016-11-15] VITALS (27 sets, daily range): BP systolic 111–145; BP diastolic 64–99; TEMP 98.3–99.3
[2016-11-15 07:59] LABS: PLATELET COUNT 253 K/uL (152-353)
[2016-11-15 08:25] LABS: POTASSIUM 3.1 mmol/L (3.6-5.2); SODIUM 136 mmol/L (136-145)
[2016-11-16] VITALS (24 sets, daily range): BP systolic 13–152; BP diastolic 54–109; TEMP 97.6–99.3
[2016-11-16 06:20] LABS: POTASSIUM 4.3 mmol/L (3.6-5.2); SODIUM 138 mmol/L (136-145)
[2016-11-16 06:46] LABS: PLATELET COUNT 225 K/uL (152-353)
[2016-11-17] VITALS (22 sets, daily range): BP systolic 118–167; BP diastolic 64–97; TEMP 98.6–99.3
[2016-11-17 06:01] LABS: PLATELET COUNT 179 K/uL (152-353)
[2016-11-17 06:50] LABS: POTASSIUM 4.1 mmol/L (3.6-5.2); SODIUM 138 mmol/L (136-145)
[2016-11-18] VITALS (20 sets, daily range): BP systolic 105–144; BP diastolic 59–81; TEMP 98.4–99.3
[2016-11-18 06:35] LABS: PLATELET COUNT 154 K/uL (152-353)
[2016-11-18 08:59] LABS: POTASSIUM 3.5 mmol/L (3.6-5.2); SODIUM 137 mmol/L (136-145)
[2016-11-19] VITALS (24 sets, daily range): BP systolic 119–149; BP diastolic 58–88; TEMP 97.7–99.1
[2016-11-19 06:51] LABS: PLATELET COUNT 127 K/uL (152-353)
[2016-11-19 10:57] LABS: SODIUM 137 mmol/L (136-145)
[2016-11-20] VITALS (14 sets, daily range): BP systolic 108–160; BP diastolic 53–96; TEMP 98–99.2
[2016-11-20 07:34] LABS: PLATELET COUNT 127 K/uL (152-353)
[2016-11-20 07:40] LABS: SODIUM 138 mmol/L (136-145)
== END 2016-11-20 15:30 | DRG 854 ==
LOC: ED 10:04 → MED/SURG 11:40 → ICU 11-10 17:45
PROVIDERS: Emergency Medicine; Internal Medicine; ADMIT Family Medicine
PROC: 02HV33Z Insertion of Infusion Device into Superior Vena Cava, Percutaneous Approach (ICD-10-PCS; 2016-11-09)
PROC: 30243N1 Transfusion of Nonautologous Red Blood Cells into Central Vein, Percutaneous Approach (ICD-10-PCS; principal; 2016-11-14)
PROC: 0B9B8ZZ Drainage of Left Lower Lobe Bronchus, Via Natural or Artificial Opening Endoscopic (ICD-10-PCS; 2016-11-15)
PROC: 30243N1 Transfusion of Nonautologous Red Blood Cells into Central Vein, Percutaneous Approach (ICD-10-PCS; 2016-11-15)
PROC: 0DH63UZ Insertion of Feeding Device into Stomach, Percutaneous Approach (ICD-10-PCS; 2016-11-17)
DX: A41.89 Other specified sepsis (principal); N39.0 Urinary tract infection, site not specified; E46 Unspecified protein-calorie malnutrition; T17.590A Other foreign object in bronchus causing asphyxiation, initial encounter; I48.91 Unspecified atrial fibrillation; E87.6 Hypokalemia; E83.42 Hypomagnesemia; I10 Essential (primary) hypertension; R41.82 Altered mental status, unspecified; B95.2 Enterococcus as the cause of diseases classified elsewhere; Z16.21 Resistance to vancomycin; R13.12 Dysphagia, oropharyngeal phase; E11.9 Type 2 diabetes mellitus without complications
CPT/HCPCS: 36415; 36430; 36591; 51702; 80048; 80053; 80162; 81000; 82550; 82553; 82962; 83036; 83735; 84484; 85014; 85018; 85027; 85610; 85730; 86850; 86900; 86901; 86922; 87070; 87077; 87086; 87088; 87185; 87186; 87205; 93005; 94640; 94664; 94760; 96365; 96366; 96367; 96372; 99284; C1751; J1160; J1650; J1885; J1940; J2001; J2020; J2175; J2270; J2405; J2704; J3475; J3480; J3490; P9016

== ENCOUNTER 2016-11-16 14:06 | Inpatient (IN) | payer OTHER ==
[~2016-11-16 14:06] MED LIST changes: +HYDR-3182 PEG; -HYDR-3182 PO; +VITAMIN C1 CH1 PEG; -VITAMIN C1 CH1 PO
[2016-12-08] MEDS ORDERED: LORA0.5T17 PEG ×2 (15:35)
[2016-12-08] MEDS ORDERED: PROM25TA52 PEG ×2 (15:39)
[2016-12-08] MEDS ORDERED: MORPHINE SULFATE SL ×2 (15:49)
[2016-12-08] MEDS ORDERED: IMDUR ER PEG ×2 (15:54)
[2016-12-08] MEDS ORDERED: ZINC SULFATE220 M1 PEG ×2 (15:56)
[2016-12-08] MEDS ORDERED: FURO40TA93 PEG ×2 (16:00)
[2016-12-08] MEDS ORDERED: TRANSDERM-SC1.5 MG TD ×2 (16:03)
[2016-12-08] MEDS ORDERED: FENT25DI TD ×2 (16:04)
[2016-12-08] MEDS ORDERED: ACET650S18 RE ×2 (16:08)
[2016-12-08] MEDS ORDERED: JEVITY 1.5 CAL PEG ×2 (16:10)
[2016-12-15 03:49] LABS: POTASSIUM 3.9 mmol/L (3.6-5.2); SODIUM 135 mmol/L (136-145)
== END 2016-12-17 09:46 | disposition still patient (30) ==
LOC: PAVC 14:06
PROVIDERS: ADMIT Internal Medicine
DX: J18.9 Pneumonia, unspecified organism (principal); A41.9 Sepsis, unspecified organism; Y95 Nosocomial condition; I48.91 Unspecified atrial fibrillation; R63.0 Anorexia; N18.4 Chronic kidney disease, stage 4 (severe); F32.9 Major depressive disorder, single episode, unspecified; F41.9 Anxiety disorder, unspecified; I10 Essential (primary) hypertension
CPT/HCPCS: 36415; 80048; 83735; 85610

== ENCOUNTER 2016-12-06 13:34 | Outpatient (CLI) | payer OTHER ==
[~2016-12-06 13:34] MED LIST changes: -HYDR-3182 PEG; +HYDR-3182 PO; -VITAMIN C1 CH1 PEG; +VITAMIN C1 CH1 PO
== END 2016-12-06 19:38 | disposition home or self-care (01) ==
LOC: RAD 13:34
DX: M54.89 Other dorsalgia (principal)

== ENCOUNTER 2016-12-08 12:30 | Inpatient (IN) | payer OTHER ==
[2016-12-08] VITALS (17 sets, daily range): BP systolic 73–117; BP diastolic 38–93; TEMP 97.4–97.8; Ht 160 cm; Wt 58.5 kg
[~2016-12-08] VITALS: Ht 160 cm; Wt 58.5 kg
[~2016-12-08 12:30] MED LIST changes: +HYDR-3182 PEG; -HYDR-3182 PO; +VITAMIN C1 CH1 PEG; -VITAMIN C1 CH1 PO
[2016-12-08 14:21] LABS: PLATELET COUNT 289 K/uL (152-353)
[2016-12-08] MEDS ORDERED: LORA0.5T17 PEG ×2 (15:35)
[2016-12-08] MEDS ORDERED: PROM25TA52 PEG ×2 (15:39)
[2016-12-08] MEDS ORDERED: MORPHINE SULFATE SL ×2 (15:49)
[2016-12-08] MEDS ORDERED: IMDUR ER PEG ×2 (15:54)
[2016-12-08] MEDS ORDERED: ZINC SULFATE220 M1 PEG ×2 (15:56)
[2016-12-08] MEDS ORDERED: FURO40TA93 PEG ×2 (16:00)
[2016-12-08] MEDS ORDERED: TRANSDERM-SC1.5 MG TD ×2 (16:03)
[2016-12-08] MEDS ORDERED: FENT25DI TD ×2 (16:04)
[2016-12-08] MEDS ORDERED: ACET650S18 RE ×2 (16:08)
[2016-12-08] MEDS ORDERED: JEVITY 1.5 CAL PEG ×2 (16:10)
[2016-12-09] VITALS (21 sets, daily range): BP systolic 73–106; BP diastolic 48–90; TEMP 21
[2016-12-10] VITALS (21 sets, daily range): BP systolic 86–135; BP diastolic 36–94; TEMP 97.6–98.7
[2016-12-10 06:43] LABS: PLATELET COUNT 292 K/uL (152-353)
[2016-12-10 06:54] LABS: POTASSIUM 6.6 mmol/L (3.6-5.2)
[2016-12-11] VITALS (24 sets, daily range): BP systolic 75–125; BP diastolic 30–88; TEMP 97.8–98.7
[2016-12-11 08:30] LABS: PLATELET COUNT 257 K/uL (152-353)
[2016-12-11 09:02] LABS: POTASSIUM 5.3 mmol/L (3.6-5.2)
[2016-12-12] VITALS (23 sets, daily range): BP systolic 78–142; BP diastolic 38–96; TEMP 98–99
[2016-12-12 04:46] LABS: PLATELET COUNT 274 K/uL (152-353)
[2016-12-13] VITALS (14 sets, daily range): BP systolic 102–134; BP diastolic 56–88; TEMP 97.9–98.1
[2016-12-13 06:02] LABS: POTASSIUM 2.8 mmol/L (3.6-5.2); SODIUM 135 mmol/L (136-145)
[2016-12-13 06:31] LABS: PLATELET COUNT 238 K/uL (152-353)
[2016-12-14] VITALS: BP 120/66; TEMP 97.7
[2016-12-14 04:00] VITALS: BP 109/64; TEMP 97.6
[2016-12-14 05:51] LABS: SODIUM 136 mmol/L (136-145)
[2016-12-14 08:32] VITALS: BP 120/57; TEMP 98.6
[2016-12-14 13:42] VITALS: BP 127/63; TEMP 98.4
== END 2016-12-14 14:45 | DRG 308 ==
LOC: ICU 12:30 → MED/SURG 12-13 11:12
PROVIDERS: ADMIT Internal Medicine
PROC: 30233N1 Transfusion of Nonautologous Red Blood Cells into Peripheral Vein, Percutaneous Approach (ICD-10-PCS; principal; 2016-12-12)
PROC: 30233K1 Transfusion of Nonautologous Frozen Plasma into Peripheral Vein, Percutaneous Approach (ICD-10-PCS; 2016-12-12)
DX: I48.91 Unspecified atrial fibrillation (principal); J18.8 Other pneumonia, unspecified organism; N39.0 Urinary tract infection, site not specified; D68.8 Other specified coagulation defects; I25.10 Atherosclerotic heart disease of native coronary artery without angina pectoris; N32.81 Overactive bladder; M15.8 Other polyosteoarthritis; F41.8 Other specified anxiety disorders; D64.89 Other specified anemias; E87.5 Hyperkalemia; E87.6 Hypokalemia; E83.42 Hypomagnesemia; I10 Essential (primary) hypertension; B96.1 Klebsiella pneumoniae [K. pneumoniae] as the cause of diseases classified elsewhere
CPT/HCPCS: 36415; 36430; 80048; 80053; 81000; 82607; 83735; 85007; 85014; 85018; 85027; 85610; 86850; 86900; 86901; 86922; 87077; 87086; 87088; 87186; 93005; 94760; 96372; J1160; J1335; J1650; J1956; J2175; J2405; J3475; P9016; P9017

== ENCOUNTER 2016-12-17 10:29 | Inpatient (IN) | payer OTHER ==
[~2016-12-17 10:29] MED LIST changes: +ACET650S18 RE; +FURO40TA93 PEG; +IMDUR ER PEG; +JEVITY 1.5 CAL PEG; +LORA0.5T17 PEG; +MORPHINE SULFATE SL; +PROM25TA52 PEG; +TRANSDERM-SC1.5 MG TD; +ZINC SULFATE220 M1 PEG
[2016-12-18 07:40] LABS: PLATELET COUNT 359 K/uL (152-353)
[2017-01-06] MEDS ORDERED: MULT VITAMI1 OR (23:50)
[2017-01-06] MEDS ORDERED: METO50TA63 PO (23:51)
[2017-01-06] MEDS ORDERED: POTASSIUM25 MEQ OR (23:54)
== END 2017-01-16 09:36 | disposition still patient (30) ==
LOC: PAVC 10:29
PROVIDERS: ADMIT Internal Medicine
DX: Z51.89 Encounter for other specified aftercare (principal)
CPT/HCPCS: 36415; 81000; 85027; 85610

== ENCOUNTER 2016-12-21 04:41 | Outpatient (CLI) | payer OTHER ==
[2016-12-21 10:35] LABS: PLATELET COUNT 332 K/uL (152-353)
== END 2016-12-21 18:58 | disposition home or self-care (01) ==
LOC: LAB 04:41
PROVIDERS: Internal Medicine
DX: Z79.02 Long term (current) use of antithrombotics/antiplatelets (principal); Z51.81 Encounter for therapeutic drug level monitoring
CPT/HCPCS: 85027; 85610

== ENCOUNTER 2016-12-22 04:14 | Outpatient (CLI) | payer OTHER ==
[2016-12-22 04:56] LABS: POTASSIUM 4.7 mmol/L (3.6-5.2)
== END 2016-12-22 05:14 | disposition home or self-care (01) ==
LOC: LAB 04:14
PROVIDERS: Internal Medicine
DX: D64.89 Other specified anemias (principal); I48.91 Unspecified atrial fibrillation
CPT/HCPCS: 80048; 85610

== ENCOUNTER 2016-12-27 04:48 | Outpatient (CLI) | payer OTHER | END 2016-12-27 18:44 | disposition home or self-care (01) | LOC: LAB 04:48 | DX: D68.8 Other specified coagulation defects (principal) | CPT/HCPCS: 36415; 85610 ==

== ENCOUNTER 2016-12-31 04:14 | Outpatient (CLI) | payer OTHER | END 2016-12-31 05:15 | disposition home or self-care (01) | LOC: LAB 04:14 | DX: D68.8 Other specified coagulation defects (principal) | CPT/HCPCS: 85610 ==

== ENCOUNTER 2017-01-02 04:54 | Outpatient (CLI) | payer OTHER | END 2017-01-02 20:28 | disposition home or self-care (01) | LOC: LAB 04:54 | DX: Z79.01 Long term (current) use of anticoagulants (principal); Z51.81 Encounter for therapeutic drug level monitoring | CPT/HCPCS: 36415; 85610 ==

== ENCOUNTER 2017-01-03 04:44 | Outpatient (CLI) | payer OTHER | END 2017-01-03 05:45 | disposition home or self-care (01) | LOC: LAB 04:44 | DX: Z79.01 Long term (current) use of anticoagulants (principal); Z51.81 Encounter for therapeutic drug level monitoring | CPT/HCPCS: 85610 ==

== ENCOUNTER 2017-01-05 04:33 | Outpatient (CLI) | payer OTHER ==
[2017-01-06] MEDS ORDERED: MULT VITAMI1 OR (23:50)
[2017-01-06] MEDS ORDERED: METO50TA63 PO (23:51)
[2017-01-06] MEDS ORDERED: POTASSIUM25 MEQ OR (23:54)
== END 2017-01-05 05:35 | disposition home or self-care (01) ==
LOC: LAB 04:33
DX: D68.8 Other specified coagulation defects (principal)
CPT/HCPCS: 36415; 85610

== ENCOUNTER 2017-01-06 22:02 | Inpatient (IN) | payer OTHER ==
[~2017-01-06] VITALS: Ht 157.5 cm; Wt 60.3 kg
[2017-01-06 22:20] VITALS: BP 130/85; TEMP 97.8
[2017-01-06 23:28] LABS: PLATELET COUNT 233 K/uL (152-353)
[2017-01-06 23:42] LABS: PARTIAL THROMBOPLASTIN TIME 27.4 SECONDS (24.5-33.6); POTASSIUM 4.6 mmol/L (3.6-5.2); SODIUM 134 mmol/L (136-145)
[2017-01-06] MEDS ORDERED: MULT VITAMI1 OR (23:50)
[2017-01-06] MEDS ORDERED: METO50TA63 PO (23:51)
[2017-01-06] MEDS ORDERED: POTASSIUM25 MEQ OR (23:54)
[2017-01-07] VITALS (38 sets, daily range): BP systolic 8–119; BP diastolic 42–85; TEMP 97.9–98.6; Ht 157.5 cm; Wt 60.3 kg
[2017-01-08] VITALS (12 sets, daily range): BP systolic 71–115; BP diastolic 41–104; TEMP 98
== END 2017-01-08 14:30 | DRG 309 ==
LOC: ED 22:02 → ICU 01-07 00:30
PROVIDERS: ADMIT Emergency Medicine
DX: I48.91 Unspecified atrial fibrillation (principal); D68.8 Other specified coagulation defects; I10 Essential (primary) hypertension; I25.10 Atherosclerotic heart disease of native coronary artery without angina pectoris; M10.9 Gout, unspecified; N32.81 Overactive bladder; F41.8 Other specified anxiety disorders
CPT/HCPCS: 36415; 80053; 81000; 82550; 84484; 85027; 85610; 85730; 93005; 96365; 96375; 99284; J3490

== ENCOUNTER 2017-01-10 12:55 | Outpatient (CLI) | payer OTHER ==
[~2017-01-10 12:55] MED LIST changes: +METO50TA63 PO; +MULT VITAMI1 OR; +POTASSIUM25 MEQ OR
== END 2017-01-10 19:05 | disposition home or self-care (01) ==
LOC: LAB 12:55
DX: Z79.01 Long term (current) use of anticoagulants (principal); Z51.81 Encounter for therapeutic drug level monitoring
CPT/HCPCS: 82310; 85610

== ENCOUNTER 2017-01-14 05:00 | Outpatient (CLI) | payer OTHER | END 2017-01-14 06:00 | disposition home or self-care (01) | LOC: LAB 05:00 | DX: Z79.01 Long term (current) use of anticoagulants (principal); Z51.81 Encounter for therapeutic drug level monitoring | CPT/HCPCS: 36415; 85610 ==

== ENCOUNTER 2017-01-16 09:56 | Inpatient (IN) | payer OTHER ==
[2017-01-19] MEDS ORDERED: CLON0.5T36 PO (15:05)
[2017-01-19] MEDS ORDERED: CARDIZEM60 MG PO (16:40)
== END 2017-02-16 14:20 | disposition still patient (30) ==
LOC: PAVC 09:56
PROVIDERS: ADMIT Internal Medicine
CPT/HCPCS: 85610

== ENCOUNTER 2017-01-19 12:40 | Observation (INO) | payer OTHER ==
[~2017-01-19] VITALS: Ht 152.4 cm; Wt 63.7 kg
[2017-01-19 14:47] VITALS: BP 124/58; TEMP 97.9; Ht 152.4 cm; Wt 63.7 kg
[2017-01-19] MEDS ORDERED: CLON0.5T36 PO (15:05)
[2017-01-19 16:00] VITALS: BP 124/58; TEMP 97.9
[2017-01-19] MEDS ORDERED: CARDIZEM60 MG PO (16:40)
[2017-01-19 20:00] VITALS: BP 93/33; TEMP 98.3
[2017-01-20] VITALS: BP 94/57; TEMP 98.5
[2017-01-20 04:00] VITALS: BP 111/69; TEMP 98.3
[2017-01-20 08:00] VITALS: BP 108/80; TEMP 98.1
[2017-01-20 12:00] VITALS: BP 123/89; TEMP 98.7
== END 2017-01-20 13:30 | disposition home or self-care (01) ==
LOC: LAB 12:40 → MED/SURG 14:20
PROVIDERS: ADMIT Internal Medicine
PROC: 30230K1 Transfusion of Nonautologous Frozen Plasma into Peripheral Vein, Open Approach (ICD-10-PCS; principal; 2017-01-19)
DX: D68.8 Other specified coagulation defects (principal)
CPT/HCPCS: 36415; 36430; 85610; 86900; 86901; 99220; G0378; P9017

== ENCOUNTER 2017-01-28 10:04 | Outpatient (CLI) | payer OTHER ==
[~2017-01-28 10:04] MED LIST changes: +CARDIZEM60 MG PO; +CLON0.5T36 PO
[2017-01-28 14:07] LABS: PLATELET COUNT 284 K/uL (152-353)
[2017-01-28 14:20] LABS: POTASSIUM 4.2 mmol/L (3.6-5.2)
== END 2017-01-28 11:05 | disposition home or self-care (01) ==
LOC: LAB 10:04
PROVIDERS: Internal Medicine
DX: I10 Essential (primary) hypertension (principal)
CPT/HCPCS: 80053; 84550; 85027

== ENCOUNTER 2017-02-01 13:47 | Outpatient (CLI) | payer OTHER | END 2017-02-01 14:50 | disposition home or self-care (01) | LOC: RAD 13:47 | DX: R05 Cough (principal) ==

== ENCOUNTER 2017-02-16 14:54 | Inpatient (IN) | payer OTHER ==
[2017-02-18] MEDS ORDERED: NAPROSYN500 MG OR (19:18)
[2017-02-18] MEDS ORDERED: FURO40TA93 PO (19:19)
[2017-03-08] MEDS ORDERED: MIRALAX3350 N1 PO (16:20)
[2017-03-08] MEDS ORDERED: ENTERIC COATED325 MG PO (16:21)
[2017-03-08] MEDS ORDERED: CALCIUM + D600 MG PO (16:23)
[2017-03-08] MEDS ORDERED: ALBUSOL IN (16:24)
[2017-03-08] MEDS ORDERED: DEXTLIQ63 PO (16:26)
[2017-03-08] MEDS ORDERED: DELSYM30 MG/5 M1 PO (16:26)
== END 2017-03-18 10:29 | disposition still patient (30) ==
LOC: PAVC 14:54
PROVIDERS: ADMIT Internal Medicine

== ENCOUNTER 2017-02-18 11:07 | Inpatient (IN) | payer OTHER ==
[2017-02-18] VITALS (7 sets, daily range): BP systolic 87–107; BP diastolic 50–78; TEMP 98–98.4; Ht 157.5 cm; Wt 69.0 kg
[~2017-02-18] VITALS: Ht 157.5 cm; Wt 69.0 kg
[2017-02-18 13:38] LABS: PLATELET COUNT 300 K/uL (152-353)
[2017-02-18] MEDS ORDERED: NAPROSYN500 MG OR (19:18)
[2017-02-18] MEDS ORDERED: FURO40TA93 PO (19:19)
[2017-02-19] VITALS (14 sets, daily range): BP systolic 72–126; BP diastolic 42–109; TEMP 98–98.4
[2017-02-19 08:50] LABS: PLATELET COUNT 262 K/uL (152-353)
[2017-02-19 09:01] LABS: POTASSIUM 4.2 mmol/L (3.6-5.2)
[2017-02-20] VITALS (9 sets, daily range): BP systolic 79–95; BP diastolic 35–64; TEMP 97.8–98.9
[2017-02-20 07:12] LABS: PLATELET COUNT 244 K/uL (152-353)
[2017-02-20 07:27] LABS: POTASSIUM 4.8 mmol/L (3.6-5.2)
[2017-02-21] VITALS (11 sets, daily range): BP systolic 82–109; BP diastolic 40–86; TEMP 97–98.1
[2017-02-21 04:19] LABS: PLATELET COUNT 263 K/uL (152-353)
[2017-02-21 04:28] LABS: POTASSIUM 4.5 mmol/L (3.6-5.2)
[2017-02-22 01:50] VITALS: BP 95/59
[2017-02-22 03:50] VITALS: BP 88/51; TEMP 98.2
[2017-02-22 05:50] VITALS: BP 105/76
[2017-02-22 06:05] LABS: POTASSIUM 4.8 mmol/L (3.6-5.2)
[2017-02-22 06:45] LABS: PLATELET COUNT 296 K/uL (152-353)
[2017-02-22 08:00] VITALS: BP 123/81; TEMP 98.3
[2017-02-22 10:00] VITALS: BP 107/72; TEMP 98.2
[2017-02-22 12:00] VITALS: BP 122/80
== END 2017-02-22 13:15 | DRG 194 ==
LOC: LAB 11:07 → RAD 11:07 → ICU 15:00
PROVIDERS: ADMIT Internal Medicine
DX: J18.8 Other pneumonia, unspecified organism (principal); M48.56XA Collapsed vertebra, not elsewhere classified, lumbar region, initial encounter for fracture; I48.91 Unspecified atrial fibrillation; I50.9 Heart failure, unspecified; M15.8 Other polyosteoarthritis; N32.81 Overactive bladder; F41.8 Other specified anxiety disorders; R62.7 Adult failure to thrive; I95.89 Other hypotension; M81.8 Other osteoporosis without current pathological fracture
CPT/HCPCS: 36415; 80053; 81000; 83880; 85027; 93005; 94640; 94664; 94760; J1940; J1956

== ENCOUNTER 2017-03-03 09:59 | Outpatient (CLI) | payer OTHER ==
[~2017-03-03 09:59] MED LIST changes: +NAPROSYN500 MG OR
== END 2017-03-03 19:07 | disposition home or self-care (01) ==
LOC: CT 09:59
DX: S80.01XA Contusion of right knee, initial encounter (principal)

== ENCOUNTER 2017-03-18 10:53 | Inpatient (IN) | payer OTHER ==
[~2017-03-18 10:53] MED LIST changes: +DEXTLIQ63 PO; +ENTERIC COATED325 MG PO; +MIRALAX3350 N1 PO
== END 2017-04-18 10:57 | disposition still patient (30) ==
LOC: PAVC 10:53
PROVIDERS: ADMIT Internal Medicine
DX: M62.81 Muscle weakness (generalized) (principal); R26.89 Other abnormalities of gait and mobility; F32.9 Major depressive disorder, single episode, unspecified; I10 Essential (primary) hypertension
CPT/HCPCS: 81000; 87077; 87086; 87088; 87186

== ENCOUNTER 2017-03-28 04:12 | Outpatient (CLI) | payer OTHER | END 2017-03-28 19:11 | disposition home or self-care (01) | LOC: LAB 04:12 | DX: N39.0 Urinary tract infection, site not specified (principal) | CPT/HCPCS: 81000; 87077; 87086; 87088; 87186 ==

== ENCOUNTER 2017-04-18 11:43 | Inpatient (IN) | payer OTHER | END 2017-05-19 11:12 | disposition still patient (30) | LOC: PAVC 11:43 | PROVIDERS: ADMIT Internal Medicine ==

== ENCOUNTER 2017-05-09 04:36 | Outpatient (CLI) | payer OTHER | END 2017-05-09 19:38 | disposition home or self-care (01) | LOC: LAB 04:36 | DX: Z79.899 Other long term (current) drug therapy (principal); Z51.81 Encounter for therapeutic drug level monitoring | CPT/HCPCS: 36415; 80162 ==

== ENCOUNTER 2017-05-19 12:27 | Inpatient (IN) | payer OTHER ==
[2017-05-30] MEDS ORDERED: LEVAQUIN250 MG OR (16:49)
[2017-05-30] MEDS ORDERED: CEFTIN250 MG PO (16:49)
[2017-05-30] MEDS ORDERED: DIGOX125 MCG PO (16:56)
[2017-05-30] MEDS ORDERED: LEXAPRO10 MG PO (16:58)
[2017-05-30] MEDS ORDERED: PANTOPRAZOLE 40MG TA PO (17:01)
[2017-05-30] MEDS ORDERED: RISP0.25 PO (17:02)
== END 2017-06-16 10:38 | disposition still patient (30) ==
LOC: PAVC 12:27
PROVIDERS: ADMIT Internal Medicine
DX: M62.81 Muscle weakness (generalized) (principal); I25.9 Chronic ischemic heart disease, unspecified; N18.4 Chronic kidney disease, stage 4 (severe); I48.91 Unspecified atrial fibrillation; R26.89 Other abnormalities of gait and mobility; G89.4 Chronic pain syndrome; F32.9 Major depressive disorder, single episode, unspecified; F41.9 Anxiety disorder, unspecified; I10 Essential (primary) hypertension

== ENCOUNTER 2017-05-23 04:20 | Outpatient (CLI) | payer OTHER | END 2017-05-23 20:20 | disposition home or self-care (01) | LOC: LAB 04:20 | DX: Z51.81 Encounter for therapeutic drug level monitoring (principal); Z79.899 Other long term (current) drug therapy | CPT/HCPCS: 36415; 80162 ==

== ENCOUNTER 2017-05-26 10:21 | Outpatient (CLI) | payer OTHER | END 2017-05-26 22:17 | disposition home or self-care (01) | LOC: RAD 10:21 | DX: R05 Cough (principal); R09.89 Other specified symptoms and signs involving the circulatory and respiratory systems ==

== ENCOUNTER 2017-05-30 15:26 | Inpatient (IN) | payer OTHER ==
[~2017-05-30] VITALS: Ht 152.4 cm; Wt 62.8 kg
[2017-05-30 16:19] VITALS: BP 108/60; TEMP 98; Ht 152.4 cm; Wt 62.8 kg
[2017-05-30] MEDS ORDERED: LEVAQUIN250 MG OR (16:49)
[2017-05-30] MEDS ORDERED: CEFTIN250 MG PO (16:49)
[2017-05-30] MEDS ORDERED: DIGOX125 MCG PO (16:56)
[2017-05-30] MEDS ORDERED: LEXAPRO10 MG PO (16:58)
[2017-05-30] MEDS ORDERED: PANTOPRAZOLE 40MG TA PO (17:01)
[2017-05-30] MEDS ORDERED: RISP0.25 PO (17:02)
[2017-05-30 20:00] VITALS: BP 114/59
[2017-05-31] VITALS: BP 125/63; TEMP 98.1
[2017-05-31 04:00] VITALS: BP 126/66; TEMP 98.6
[2017-05-31 08:11] VITALS: BP 98/50; TEMP 98.5
[2017-05-31 12:00] VITALS: BP 114/58; TEMP 98.1
[2017-05-31 15:00] LABS: PLATELET COUNT 245 K/uL (152-353)
[2017-05-31 15:31] LABS: POTASSIUM 4.1 mmol/L (3.6-5.2)
[2017-05-31 16:00] VITALS: BP 112/56; TEMP 97.9
[2017-05-31 20:00] VITALS: BP 108/70; TEMP 98.4
[2017-06-01] VITALS: BP 91/46; TEMP 97.8
[2017-06-01 04:00] VITALS: BP 96/52; TEMP 97.7
[2017-06-01 08:00] VITALS: BP 120/84; TEMP 97.8
[2017-06-01 12:24] VITALS: BP 96/44; TEMP 98.3
[2017-06-01 16:00] VITALS: BP 94/48; TEMP 98.3
[2017-06-01 20:00] VITALS: BP 113/46; TEMP 98.3
[2017-06-02] VITALS: BP 94/33; TEMP 98.7
[2017-06-02 04:00] VITALS: BP 104/60; TEMP 97.9
[2017-06-02 08:33] VITALS: BP 127/61; TEMP 98.3
[2017-06-02 12:00] VITALS: BP 98/44; TEMP 98.3
[2017-06-02 16:00] VITALS: BP 109/53; TEMP 99.6
[2017-06-02 20:00] VITALS: BP 108/59; TEMP 98.5
[2017-06-03] VITALS: BP 109/53; TEMP 98.5
[2017-06-03 04:00] VITALS: BP 105/52; TEMP 98.1
[2017-06-03 08:00] VITALS: BP 127/64; TEMP 97.6
[2017-06-03 12:00] VITALS: BP 110/63; TEMP 98.4
[2017-06-03 16:00] VITALS: BP 113/69; TEMP 98.2
[2017-06-03 20:26] VITALS: BP 128/58; TEMP 98.4
[2017-06-04 00:22] VITALS: BP 103/61; TEMP 98.9
[2017-06-04 04:00] VITALS: BP 114/54; TEMP 98.5
[2017-06-04 08:00] VITALS: BP 99/56; TEMP 98
[2017-06-04 12:00] VITALS: BP 107/59; TEMP 98.3
[2017-06-04 16:00] VITALS: BP 104/58; TEMP 98
[2017-06-04 20:07] VITALS: BP 111/50; TEMP 98.2
[2017-06-05 00:18] VITALS: BP 112/58; TEMP 98.2
[2017-06-05 04:00] VITALS: BP 115/51; TEMP 98.5
[2017-06-05 08:00] VITALS: BP 106/48; TEMP 97.8
[2017-06-05 12:00] VITALS: BP 114/67; TEMP 98
[2017-06-05 16:00] VITALS: BP 110/62; TEMP 97.8
[2017-06-05 20:00] VITALS: BP 113/64; TEMP 98.1
[2017-06-06] VITALS: BP 103/63; TEMP 98
[2017-06-06 04:00] VITALS: BP 107/64; TEMP 98.4
[2017-06-06 08:39] VITALS: BP 110/59; TEMP 98.5
== END 2017-06-06 12:00 | DRG 689 ==
LOC: MED/SURG 15:26
PROVIDERS: ADMIT Internal Medicine
DX: N39.0 Urinary tract infection, site not specified (principal); J18.8 Other pneumonia, unspecified organism; B96.5 Pseudomonas (aeruginosa) (mallei) (pseudomallei) as the cause of diseases classified elsewhere; I48.91 Unspecified atrial fibrillation; M10.9 Gout, unspecified; I25.10 Atherosclerotic heart disease of native coronary artery without angina pectoris; I10 Essential (primary) hypertension; F41.8 Other specified anxiety disorders; I95.89 Other hypotension; N32.81 Overactive bladder; E11.9 Type 2 diabetes mellitus without complications
CPT/HCPCS: 36415; 80053; 81000; 85027; 94640; 94664; 94760; J1956

== ENCOUNTER 2017-06-16 10:55 | Inpatient (IN) | payer OTHER ==
[~2017-06-16 10:55] MED LIST changes: +CEFTIN250 MG PO; +DIGOX125 MCG PO; +LEVAQUIN250 MG OR; +LEXAPRO10 MG PO; +PANTOPRAZOLE 40MG TA PO; +RISP0.25 PO
== END 2017-07-17 08:00 | disposition still patient (30) ==
LOC: PAVC 10:55
PROVIDERS: ADMIT Internal Medicine
DX: J18.9 Pneumonia, unspecified organism (principal); J81.0 Acute pulmonary edema; R26.81 Unsteadiness on feet; M62.81 Muscle weakness (generalized); I25.9 Chronic ischemic heart disease, unspecified; I48.91 Unspecified atrial fibrillation; F32.9 Major depressive disorder, single episode, unspecified; F41.9 Anxiety disorder, unspecified; I10 Essential (primary) hypertension
CPT/HCPCS: 36415; 82310

== ENCOUNTER 2017-07-17 09:00 | Inpatient (IN) | payer OTHER | END 2017-08-16 10:28 | disposition still patient (30) | LOC: PAVC 09:00 | PROVIDERS: ADMIT Internal Medicine ==

== ENCOUNTER 2017-08-16 10:50 | Inpatient (IN) | payer OTHER | END 2017-09-16 10:24 | disposition still patient (30) | LOC: PAVC 10:50 | PROVIDERS: ADMIT Internal Medicine ==

== ENCOUNTER 2017-09-16 10:47 | Inpatient (IN) | payer OTHER ==
[2017-09-19] MEDS ORDERED: IBUPROFEN200 M1 PO (22:00)
[2017-09-19] MEDS ORDERED: HYDR10TA47A PEG (22:03)
[2017-09-19] MEDS ORDERED: ALUMSUS6 PO (22:04)
[2017-09-19] MEDS ORDERED: MAGNSUS68 PO (22:04)
[2017-09-19] MEDS ORDERED: KONSYL PEG (22:05)
[2017-09-19] MEDS ORDERED: GUAIFENESIN DM PO (22:07)
[2017-09-19] MEDS ORDERED: TYLENOL325 M1 PEG (22:09)
[2017-09-19] MEDS ORDERED: GABA300C2 PEG (22:17)
[2017-09-19] MEDS ORDERED: NEURONTIN 100M100 MG PEG (22:17)
[2017-09-19] MEDS ORDERED: CARDIZEM LA360 MG PEG (22:19)
[2017-09-19] MEDS ORDERED: AZO CRANBERY UR1 CAP PO (22:44)
[2017-09-19] MEDS ORDERED: FURO40TA93 PEG (22:47)
[2017-09-19] MEDS ORDERED: DENO60SO SC (22:49)
[2017-09-19] MEDS ORDERED: POT CHLORIDE20 ME2 PEG (22:51)
== END 2017-10-16 15:05 | disposition still patient (30) ==
LOC: PAVC 10:47
PROVIDERS: ADMIT Internal Medicine
DX: N10 Acute pyelonephritis (principal); R09.02 Hypoxemia; B02.9 Zoster without complications; N18.4 Chronic kidney disease, stage 4 (severe); M81.0 Age-related osteoporosis without current pathological fracture; F32.9 Major depressive disorder, single episode, unspecified; F41.9 Anxiety disorder, unspecified; I10 Essential (primary) hypertension; I25.9 Chronic ischemic heart disease, unspecified; M15.9 Polyosteoarthritis, unspecified

== ENCOUNTER 2017-10-16 15:29 | Inpatient (IN) | payer OTHER ==
[~2017-10-16 15:29] MED LIST changes: +ALUMSUS6 PO; +AZO CRANBERY UR1 CAP PO; +CARDIZEM LA360 MG PEG; +GABA300C2 PEG; +GUAIFENESIN DM PO; +HYDR10TA47A PEG; +IBUPROFEN200 M1 PO; +KONSYL PEG; +NEURONTIN 100M100 MG PEG; +POT CHLORIDE20 ME2 PEG; +TYLENOL325 M1 PEG
== END 2017-11-16 08:00 | disposition still patient (30) ==
LOC: PAVC 15:29
PROVIDERS: ADMIT Internal Medicine

== ENCOUNTER 2017-11-16 09:00 | Inpatient (IN) | payer OTHER | END 2017-12-17 11:11 | disposition still patient (30) | LOC: PAVC 09:00 | PROVIDERS: ADMIT Internal Medicine ==

== ENCOUNTER 2017-12-17 11:33 | Inpatient (IN) | payer OTHER | END 2018-01-16 14:34 | disposition still patient (30) | LOC: PAVC 11:33 | PROVIDERS: ADMIT Internal Medicine ==

== ENCOUNTER 2017-12-23 05:46 | Outpatient (CLI) | payer OTHER | END 2017-12-23 23:23 | disposition home or self-care (01) | LOC: LAB 05:46 | DX: E83.52 Hypercalcemia (principal) | CPT/HCPCS: 36415; 82310 ==

== ENCOUNTER 2018-01-16 15:29 | Inpatient (IN) | payer OTHER | END 2018-02-16 10:32 | disposition still patient (30) | LOC: PAVC 15:29 | PROVIDERS: ADMIT Internal Medicine ==

== ENCOUNTER 2018-01-17 06:32 | Outpatient (CLI) | payer OTHER ==
[2018-01-17 08:43] LABS: PLATELET COUNT 282 K/uL (152-353)
[2018-01-17 08:48] LABS: POTASSIUM 3.7 mmol/L (3.6-5.2)
== END 2018-01-17 22:58 | disposition home or self-care (01) ==
LOC: LAB 06:32
PROVIDERS: Internal Medicine
DX: E79.0 Hyperuricemia without signs of inflammatory arthritis and tophaceous disease (principal); I10 Essential (primary) hypertension; M19.90 Unspecified osteoarthritis, unspecified site
CPT/HCPCS: 36415; 80053; 84550; 85027

== ENCOUNTER 2018-01-23 18:20 | Outpatient (CLI) | payer OTHER | END 2018-01-23 19:59 | disposition home or self-care (01) | LOC: LAB 18:20 | DX: R30.0 Dysuria (principal) | CPT/HCPCS: 81000; 87077; 87086; 87088; 87186 ==

== ENCOUNTER 2018-01-30 10:11 | Outpatient (CLI) | payer OTHER | END 2018-01-30 19:17 | disposition home or self-care (01) | LOC: MAMMO 10:11 | DX: N63.10 Unspecified lump in the right breast, unspecified quadrant (principal) ==

== ENCOUNTER 2018-02-06 11:20 | Outpatient (CLI) | payer OTHER | END 2018-02-06 19:54 | disposition home or self-care (01) | LOC: LAB 11:20 | DX: N39.0 Urinary tract infection, site not specified (principal) | CPT/HCPCS: 81000 ==

== ENCOUNTER 2018-02-08 11:12 | Outpatient (CLI) | payer OTHER | END 2018-02-08 20:59 | disposition home or self-care (01) | LOC: RAD 11:12 | DX: R09.89 Other specified symptoms and signs involving the circulatory and respiratory systems (principal) ==

== ENCOUNTER 2018-02-16 11:19 | Inpatient (IN) | payer OTHER | END 2018-03-18 07:21 | disposition still patient (30) | LOC: PAVC 11:19 | PROVIDERS: ADMIT Internal Medicine ==

== ENCOUNTER 2018-02-23 05:49 | Outpatient (CLI) | payer OTHER | END 2018-02-23 20:08 | disposition home or self-care (01) | LOC: LAB 05:49 | DX: E55.9 Vitamin D deficiency, unspecified (principal) | CPT/HCPCS: 36415; 82306 ==

== ENCOUNTER 2018-03-06 15:11 | Outpatient (CLI) | payer OTHER | END 2018-03-06 19:53 | disposition home or self-care (01) | LOC: RAD 15:11 | DX: R09.89 Other specified symptoms and signs involving the circulatory and respiratory systems (principal) ==

== ENCOUNTER 2018-03-18 07:44 | Inpatient (IN) | payer OTHER | END 2018-04-18 09:36 | disposition still patient (30) | LOC: PAVC 07:44 | PROVIDERS: ADMIT Internal Medicine ==

== ENCOUNTER 2018-03-27 09:10 | Outpatient (CLI) | payer OTHER | END 2018-03-27 22:47 | disposition home or self-care (01) | LOC: US 09:10 | DX: R10.11 Right upper quadrant pain (principal); R11.0 Nausea ==

== ENCOUNTER 2018-04-18 09:51 | Inpatient (IN) | payer OTHER | END 2018-05-19 09:37 | disposition still patient (30) | LOC: PAVC 09:51 | PROVIDERS: ADMIT Internal Medicine ==

== ENCOUNTER 2018-05-19 10:07 | Inpatient (IN) | payer OTHER | END 2018-06-16 12:12 | disposition still patient (30) | LOC: PAVC 10:07 | PROVIDERS: ADMIT Internal Medicine ==

== ENCOUNTER 2018-06-16 12:13 | Inpatient (IN) | payer OTHER ==
[~2018-06-16] VITALS: Ht 149.9 cm; Wt 71.7 kg
== END 2018-07-17 12:30 | disposition still patient (30) ==
LOC: PAVC 12:13
PROVIDERS: ADMIT Internal Medicine

== ENCOUNTER 2018-06-26 04:45 | Outpatient (CLI) | payer OTHER | END 2018-06-26 19:26 | disposition home or self-care (01) | LOC: LAB 04:45 | DX: E83.50 Unspecified disorder of calcium metabolism (principal) | CPT/HCPCS: 36415; 82310 ==

== ENCOUNTER 2018-07-10 06:28 | Observation (INO) | payer OTHER ==
[~2018-07-10] VITALS: Ht 149.9 cm; Wt 67.1 kg
[2018-07-10] VITALS: BP 130/78; TEMP 98.6
[2018-07-10 08:51] LABS: PLATELET COUNT 251 K/uL (152-353)
[2018-07-10 08:55] LABS: POTASSIUM 3.9 mmol/L (3.6-5.2)
[2018-07-10 09:04] LABS: PARTIAL THROMBOPLASTIN TIME 23.9 SECONDS (24.5-33.6)
[2018-07-10 16:46] VITALS: BP 95/42; TEMP 97.1; Ht 149.9 cm; Wt 67.1 kg
[2018-07-10 20:00] VITALS: BP 111/68; TEMP 97.8
[2018-07-11] VITALS: BP 130/78; TEMP 98.6
[2018-07-11 04:00] VITALS: BP 111/71; TEMP 98.4
[2018-07-11 08:00] VITALS: BP 118/66; TEMP 97.5
[2018-07-11 12:00] VITALS: BP 119/68; TEMP 97.6
== END 2018-07-11 13:40 | disposition home or self-care (01) ==
LOC: OR 06:28 → MED/SURG 15:14
PROVIDERS: Student in an Organized Health Care Education/Training Program; ADMIT Internal Medicine
PROC: 0FT44ZZ Resection of Gallbladder, Percutaneous Endoscopic Approach (ICD-10-PCS; principal; 2018-07-10)
DX: K80.12 Calculus of gallbladder with acute and chronic cholecystitis without obstruction (principal); I25.10 Atherosclerotic heart disease of native coronary artery without angina pectoris; I48.2 Chronic atrial fibrillation; M81.8 Other osteoporosis without current pathological fracture; E11.9 Type 2 diabetes mellitus without complications; R53.83 Other fatigue
CPT/HCPCS: 80053; 85027; 85610; 85730; 93005; 94640; 94664; 94760; 99220; G0378; J0330; J0690; J1100; J1170; J2001; J2250; J2405; J2710; J3010; J3490

== ENCOUNTER 2018-07-17 12:47 | Inpatient (IN) | payer OTHER | END 2018-08-16 13:43 | disposition still patient (30) | LOC: PAVC 12:47 | PROVIDERS: ADMIT Internal Medicine ==

== ENCOUNTER 2018-07-24 03:36 | Outpatient (CLI) | payer OTHER ==
[2018-07-24 04:20] LABS: PLATELET COUNT 411 K/uL (152-353)
[2018-07-24 05:05] LABS: POTASSIUM 4.8 mmol/L (3.6-5.2)
== END 2018-07-24 22:51 | disposition home or self-care (01) ==
LOC: LAB 03:36
PROVIDERS: Internal Medicine
DX: E79.0 Hyperuricemia without signs of inflammatory arthritis and tophaceous disease (principal); I10 Essential (primary) hypertension; M19.90 Unspecified osteoarthritis, unspecified site
CPT/HCPCS: 36415; 80053; 84550; 85027

== ENCOUNTER 2018-08-08 12:42 | Outpatient (CLI) | payer OTHER | END 2018-08-08 20:27 | disposition home or self-care (01) | LOC: RAD 12:42 → LAB 12:42 → RAD 20:27 | DX: R05 Cough (principal); R82.998 Other abnormal findings in urine | CPT/HCPCS: 81000; 87086; 87088 ==

== ENCOUNTER 2018-08-16 14:10 | Inpatient (IN) | payer OTHER | END 2018-09-16 09:39 | disposition still patient (30) | LOC: PAVC 14:10 | PROVIDERS: ADMIT Internal Medicine | DX: Z51.89 Encounter for other specified aftercare (principal) ==

== ENCOUNTER 2018-08-17 08:34 | Outpatient (CLI) | payer OTHER | END 2018-08-17 19:48 | disposition home or self-care (01) | LOC: LAB 08:34 | DX: E55.9 Vitamin D deficiency, unspecified (principal) | CPT/HCPCS: 82306 ==

== ENCOUNTER 2018-08-28 16:23 | Outpatient (CLI) | payer OTHER | END 2018-08-28 22:49 | disposition home or self-care (01) | LOC: LAB 16:23 | DX: R82.998 Other abnormal findings in urine (principal) | CPT/HCPCS: 81000; 87077; 87086; 87088; 87186 ==

== ENCOUNTER 2018-09-16 10:03 | Inpatient (IN) | payer OTHER | END 2018-10-16 12:19 | disposition still patient (30) | LOC: PAVC 10:03 | PROVIDERS: ADMIT Internal Medicine ==

== ENCOUNTER 2018-09-19 15:58 | Outpatient (CLI) | payer OTHER | END 2018-09-19 19:25 | disposition home or self-care (01) | LOC: LAB 15:58 | DX: N39.0 Urinary tract infection, site not specified (principal) | CPT/HCPCS: 81000; 87077; 87086; 87088; 87186 ==

== ENCOUNTER 2018-10-05 14:57 | Outpatient (CLI) | payer OTHER | END 2018-10-05 23:08 | disposition home or self-care (01) | LOC: LAB 14:57 | DX: N39.0 Urinary tract infection, site not specified (principal); Z79.2 Long term (current) use of antibiotics | CPT/HCPCS: 81000; 87088 ==

== ENCOUNTER 2018-10-16 12:29 | Inpatient (IN) | payer OTHER | END 2018-11-16 11:53 | disposition still patient (30) | LOC: PAVC 12:29 | PROVIDERS: ADMIT Internal Medicine ==

== ENCOUNTER 2018-10-30 02:59 | Outpatient (CLI) | payer OTHER | END 2018-10-30 22:42 | disposition home or self-care (01) | LOC: LAB 02:59 | DX: E79.0 Hyperuricemia without signs of inflammatory arthritis and tophaceous disease (principal) | CPT/HCPCS: 36415; 84550 ==

== ENCOUNTER 2018-11-16 14:13 | Inpatient (IN) | payer OTHER | END 2018-12-17 17:16 | disposition still patient (30) | LOC: PAVC 14:13 | PROVIDERS: ADMIT Internal Medicine ==

== ENCOUNTER 2018-12-13 11:11 | Outpatient (CLI) | payer OTHER | END 2018-12-13 19:52 | disposition home or self-care (01) | LOC: LAB 11:11 | DX: N39.0 Urinary tract infection, site not specified (principal) | CPT/HCPCS: 81000; 87077; 87086; 87088; 87186 ==

== ENCOUNTER 2018-12-17 17:39 | Inpatient (IN) | payer OTHER | END 2019-01-16 12:57 | disposition still patient (30) | LOC: PAVC 17:39 | PROVIDERS: ADMIT Internal Medicine ==

== ENCOUNTER 2018-12-19 09:55 | Outpatient (CLI) | payer OTHER | END 2018-12-19 22:52 | disposition home or self-care (01) | LOC: LAB 09:55 | DX: Z79.810 Long term (current) use of selective estrogen receptor modulators (SERMs) (principal); Z79.83 Long term (current) use of bisphosphonates; M81.0 Age-related osteoporosis without current pathological fracture | CPT/HCPCS: 82310 ==

== ENCOUNTER 2018-12-22 10:44 | Outpatient (CLI) | payer OTHER | END 2018-12-22 22:17 | disposition home or self-care (01) | LOC: US 10:44 | DX: Z87.440 Personal history of urinary (tract) infections (principal); N28.89 Other specified disorders of kidney and ureter ==

== ENCOUNTER 2018-12-29 01:46 | Outpatient (CLI) | payer OTHER | END 2018-12-29 22:56 | disposition home or self-care (01) | LOC: LAB 01:46 | DX: N39.0 Urinary tract infection, site not specified (principal) | CPT/HCPCS: 81000; 87077; 87086; 87088; 87186 ==

== ENCOUNTER 2019-01-16 13:29 | Inpatient (IN) | payer OTHER | END 2019-02-16 14:09 | disposition still patient (30) | LOC: PAVC 13:29 | PROVIDERS: ADMIT Internal Medicine ==

== ENCOUNTER 2019-01-19 05:11 | Outpatient (CLI) | payer OTHER ==
[2019-01-19 05:48] LABS: POTASSIUM 4.3 mmol/L (3.6-5.2)
[2019-01-19 06:12] LABS: PLATELET COUNT 279 K/uL (152-353)
== END 2019-01-19 21:59 | disposition home or self-care (01) ==
LOC: LAB 05:11
PROVIDERS: Internal Medicine
DX: I10 Essential (primary) hypertension (principal); I48.91 Unspecified atrial fibrillation; M81.0 Age-related osteoporosis without current pathological fracture
CPT/HCPCS: 80053; 84550; 85027

== ENCOUNTER 2019-01-22 12:23 | Outpatient (CLI) | payer OTHER | END 2019-01-22 22:02 | disposition home or self-care (01) | LOC: LAB 12:23 | DX: D53.8 Other specified nutritional anemias (principal) | CPT/HCPCS: 82607 ==

== ENCOUNTER 2019-02-08 15:59 | Outpatient (CLI) | payer OTHER | END 2019-02-08 23:22 | disposition home or self-care (01) | LOC: RAD 15:59 | DX: R05 Cough (principal); R06.2 Wheezing; J40 Bronchitis, not specified as acute or chronic ==

== ENCOUNTER 2019-02-13 10:48 | Outpatient (CLI) | payer OTHER | END 2019-02-13 20:19 | disposition home or self-care (01) | LOC: LAB 10:48 | DX: R05 Cough (principal); R06.2 Wheezing; R09.89 Other specified symptoms and signs involving the circulatory and respiratory systems; I48.91 Unspecified atrial fibrillation | CPT/HCPCS: 80162 ==

== ENCOUNTER 2019-02-16 14:34 | Inpatient (IN) | payer OTHER | END 2019-03-18 08:00 | disposition still patient (30) | LOC: PAVC 14:34 | PROVIDERS: ADMIT Internal Medicine ==

== ENCOUNTER 2019-02-20 04:25 | Outpatient (CLI) | payer OTHER | END 2019-02-20 20:28 | disposition home or self-care (01) | LOC: LAB 04:25 | DX: E55.9 Vitamin D deficiency, unspecified (principal) | CPT/HCPCS: 82306 ==

== ENCOUNTER 2019-03-05 22:15 | Outpatient (CLI) | payer OTHER | END 2019-03-05 23:53 | disposition home or self-care (01) | LOC: RAD 22:15 | DX: R09.89 Other specified symptoms and signs involving the circulatory and respiratory systems (principal) ==

== ENCOUNTER 2019-03-18 11:00 | Inpatient (IN) | payer OTHER | END 2019-04-18 09:30 | disposition still patient (30) | LOC: PAVC 11:00 | PROVIDERS: ADMIT Internal Medicine ==

== ENCOUNTER 2019-04-18 09:54 | Inpatient (IN) | payer OTHER ==
[2019-05-09] MEDS ORDERED: ALLO300T23 PO (06:25)
[2019-05-09] MEDS ORDERED: CETI10TA PO (06:26)
[2019-05-09] MEDS ORDERED: ASCORBIC ACD500 MG PO (06:27)
[2019-05-09] MEDS ORDERED: BUSPIRONE10 MG PO (06:28)
[2019-05-09] MEDS ORDERED: LACTOBACILLU PO (06:29)
== END 2019-05-19 10:45 | disposition still patient (30) ==
LOC: PAVC 09:54
PROVIDERS: ADMIT Internal Medicine

== ENCOUNTER 2019-05-08 22:36 | Inpatient (IN) | payer OTHER ==
[~2019-05-08] VITALS: Ht 152.4 cm; Wt 62.7 kg
[2019-05-08 23:04] VITALS: BP 98/56; TEMP 97.7
[2019-05-08 23:18] LABS: PLATELET COUNT 278 K/uL (152-353)
[2019-05-08 23:36] LABS: POTASSIUM 4.2 mmol/L (3.6-5.2); SODIUM 135 mmol/L (136-145)
[2019-05-09 01:44] VITALS: BP 129/42; TEMP 98.6; Ht 152.4 cm; Wt 62.7 kg
[2019-05-09 04:00] VITALS: BP 120/81; TEMP 98.2
[2019-05-09] MEDS ORDERED: ALLO300T23 PO (06:25)
[2019-05-09] MEDS ORDERED: CETI10TA PO (06:26)
[2019-05-09] MEDS ORDERED: ASCORBIC ACD500 MG PO (06:27)
[2019-05-09] MEDS ORDERED: BUSPIRONE10 MG PO (06:28)
[2019-05-09] MEDS ORDERED: LACTOBACILLU PO (06:29)
[2019-05-09 08:00] VITALS: BP 125/72; TEMP 98.8
[2019-05-09 12:00] VITALS: BP 133/94; TEMP 99
[2019-05-09 16:00] VITALS: BP 103/52; TEMP 98.5
[2019-05-09 20:08] VITALS: BP 111/51; TEMP 98.9
[2019-05-10] VITALS (7 sets, daily range): BP systolic 106–145; BP diastolic 47–70; TEMP 97.8–99.5
[2019-05-11 04:00] VITALS: BP 141/73; TEMP 98
[2019-05-11 06:00] LABS: PLATELET COUNT 259 K/uL (152-353)
[2019-05-11 06:22] LABS: POTASSIUM 3.6 mmol/L (3.6-5.2)
[2019-05-11 08:00] VITALS: BP 133/72; TEMP 98.1
[2019-05-11 12:00] VITALS: BP 174/79; TEMP 98
[2019-05-11 16:00] VITALS: BP 90/60; TEMP 97.8
[2019-05-11 20:00] VITALS: BP 95/46; TEMP 97.9
[2019-05-12] VITALS: BP 123/72; TEMP 98.4
[2019-05-12 04:00] VITALS: BP 113/61; TEMP 98.3
[2019-05-12 08:00] VITALS: BP 117/72; TEMP 97.2
== END 2019-05-12 19:10 | DRG 310 ==
LOC: ED 22:36 → MED/SURG 05-09 00:30
PROVIDERS: Emergency Medicine; ADMIT Internal Medicine
DX: I48.91 Unspecified atrial fibrillation (principal); I10 Essential (primary) hypertension; J20.9 Acute bronchitis, unspecified; R13.19 Other dysphagia; I25.10 Atherosclerotic heart disease of native coronary artery without angina pectoris; M15.8 Other polyosteoarthritis; E83.42 Hypomagnesemia; M10.9 Gout, unspecified; F41.8 Other specified anxiety disorders; N32.81 Overactive bladder
CPT/HCPCS: 36415; 36416; 80053; 83690; 83735; 83880; 84484; 85027; 87502; 93005; 94760; 96374; 99285; J0696; J3490

== ENCOUNTER 2019-05-18 10:11 | Outpatient (CLI) | payer OTHER ==
[~2019-05-18 10:11] MED LIST changes: +ALLO300T23 PO; +ASCORBIC ACD500 MG PO; +BUSPIRONE10 MG PO; +CETI10TA PO; +LACTOBACILLU PO
== END 2019-05-18 19:38 | disposition home or self-care (01) ==
LOC: US 10:11
DX: M79.605 Pain in left leg (principal); M79.604 Pain in right leg; R60.0 Localized edema

== ENCOUNTER 2019-05-19 11:10 | Inpatient (IN) | payer OTHER | END 2019-06-17 14:10 | disposition still patient (30) | LOC: PAVC 11:10 | PROVIDERS: ADMIT Internal Medicine ==

== ENCOUNTER 2019-06-17 14:36 | Inpatient (IN) | payer OTHER | END 2019-07-18 11:43 | disposition still patient (30) | LOC: PAVC 14:36 | PROVIDERS: ADMIT Internal Medicine ==

== ENCOUNTER 2019-06-18 05:57 | Outpatient (CLI) | payer OTHER | END 2019-06-18 19:06 | disposition home or self-care (01) | LOC: LAB 05:57 | DX: E83.52 Hypercalcemia (principal) | CPT/HCPCS: 82310 ==

== ENCOUNTER 2019-06-23 19:45 | Outpatient (CLI) | payer OTHER | END 2019-06-23 22:50 | disposition home or self-care (01) | LOC: LAB 19:45 | DX: N39.0 Urinary tract infection, site not specified (principal) | CPT/HCPCS: 81000; 87077; 87086; 87088; 87186 ==

== ENCOUNTER 2019-06-25 14:24 | Outpatient (CLI) | payer OTHER ==
[2019-06-25 14:50] LABS: POTASSIUM 3.5 mmol/L (3.6-5.2)
== END 2019-06-25 19:23 | disposition home or self-care (01) ==
LOC: LAB 14:24
PROVIDERS: Internal Medicine
DX: N39.0 Urinary tract infection, site not specified (principal); N18.4 Chronic kidney disease, stage 4 (severe); I12.9 Hypertensive chronic kidney disease with stage 1 through stage 4 chronic kidney disease, or unspecified chronic kidney disease
CPT/HCPCS: 36415; 80053

== ENCOUNTER 2019-07-02 11:49 | Emergency (ER) | payer OTHER ==
[~2019-07-02] VITALS: Ht 152.4 cm; Wt 61.2 kg
[2019-07-02 12:42] VITALS: TEMP 97.5
[2019-07-02 14:22] LABS: PLATELET COUNT 221 K/uL (152-353)
[2019-07-02 14:31] LABS: POTASSIUM 3.5 mmol/L (3.6-5.2)
[2019-07-02 18:00] VITALS: BP 139/57
== END 2019-07-02 18:15 | disposition still patient (30) ==
LOC: ED 12:42
PROVIDERS: Emergency Medicine
DX: R55 Syncope and collapse (principal); B96.89 Other specified bacterial agents as the cause of diseases classified elsewhere; I48.91 Unspecified atrial fibrillation
CPT/HCPCS: 80053; 80162; 84484; 85027; 87324; 87449; 93005; 96360; 99284

== ENCOUNTER 2019-07-18 12:07 | Inpatient (IN) | payer OTHER ==
[2019-08-09] MEDS ORDERED: BUSPIRONE10 MG PO (04:15)
[2019-08-09] MEDS ORDERED: ELIQUIS5 MG PO (04:20)
[2019-08-09] MEDS ORDERED: FLONASE AL50 MCG/ACT NAS (04:22)
[2019-08-09] MEDS ORDERED: ISOS30TA17 PO (04:24)
[2019-08-09] MEDS ORDERED: METO100T37 PO (04:28)
[2019-08-09] MEDS ORDERED: HYDR200T3 PO (04:31)
[2019-08-09] MEDS ORDERED: AZIT250T3 PO (04:32)
== END 2019-08-17 11:21 | disposition still patient (30) ==
LOC: PAVC 12:07
PROVIDERS: ADMIT Internal Medicine

== ENCOUNTER 2019-08-08 23:20 | Inpatient (IN) | payer OTHER ==
[~2019-08-08] VITALS: Ht 149.9 cm; Wt 58.5 kg
[2019-08-09 01:05] LABS: POTASSIUM 4.4 mmol/L (3.6-5.2); SODIUM 131 mmol/L (136-145)
[2019-08-09 01:39] LABS: PLATELET COUNT 155 K/uL (152-353)
[2019-08-09 02:33] VITALS: BP 89/40; TEMP 100.4; Ht 149.9 cm; Wt 58.5 kg
[2019-08-09 04:00] VITALS: BP 90/43; TEMP 99.7
[2019-08-09] MEDS ORDERED: BUSPIRONE10 MG PO (04:15)
[2019-08-09] MEDS ORDERED: ELIQUIS5 MG PO (04:20)
[2019-08-09] MEDS ORDERED: FLONASE AL50 MCG/ACT NAS (04:22)
[2019-08-09] MEDS ORDERED: ISOS30TA17 PO (04:24)
[2019-08-09] MEDS ORDERED: METO100T37 PO (04:28)
[2019-08-09] MEDS ORDERED: HYDR200T3 PO (04:31)
[2019-08-09] MEDS ORDERED: AZIT250T3 PO (04:32)
[2019-08-09 08:00] VITALS: BP 98/51; TEMP 98.6
[2019-08-09 12:00] VITALS: BP 106/45; TEMP 98.6
[2019-08-09 16:00] VITALS: BP 114/62; TEMP 97.5
[2019-08-09 20:00] VITALS: BP 111/48; TEMP 98.7
[2019-08-10] VITALS (9 sets, daily range): BP systolic 88–122; BP diastolic 36–70; TEMP 97.6–101.6
[2019-08-10 09:33] LABS: POTASSIUM 3.1 mmol/L (3.6-5.2)
[2019-08-10 09:54] LABS: PLATELET COUNT 169 K/uL (152-353)
[2019-08-11] VITALS (15 sets, daily range): BP systolic 84–137; BP diastolic 29–78; TEMP 98.2–98.6
[2019-08-11 05:43] LABS: PLATELET COUNT 165 K/uL (152-353)
[2019-08-11 05:53] LABS: POTASSIUM 3.1 mmol/L (3.6-5.2)
[2019-08-12] VITALS (22 sets, daily range): BP systolic 101–151; BP diastolic 48–99; TEMP 98.4–99
[2019-08-12 06:01] LABS: PLATELET COUNT 165 K/uL (152-353)
[2019-08-12 06:16] LABS: POTASSIUM 3.2 mmol/L (3.6-5.2)
[2019-08-13] VITALS (21 sets, daily range): BP systolic 98–166; BP diastolic 43–107; TEMP 97.9–99.2
[2019-08-13 06:09] LABS: PLATELET COUNT 172 K/uL (152-353)
[2019-08-13 06:32] LABS: POTASSIUM 3.1 mmol/L (3.6-5.2)
[2019-08-14] VITALS (23 sets, daily range): BP systolic 102–157; BP diastolic 37–109; TEMP 97–99.2
[2019-08-14 06:07] LABS: PLATELET COUNT 192 K/uL (152-353)
[2019-08-14 06:32] LABS: POTASSIUM 3.5 mmol/L (3.6-5.2)
[2019-08-15] VITALS (22 sets, daily range): BP systolic 117–149; BP diastolic 49–104; TEMP 97.2–99
[2019-08-15 06:19] LABS: PLATELET COUNT 201 K/uL (152-353)
[2019-08-15 06:31] LABS: POTASSIUM 3.7 mmol/L (3.6-5.2)
[2019-08-16] VITALS (21 sets, daily range): BP systolic 115–153; BP diastolic 52–89; TEMP 98–98.7
[2019-08-17] VITALS (20 sets, daily range): BP systolic 103–152; BP diastolic 52–102; TEMP 97.6–99.2
[2019-08-17 11:55] LABS: POTASSIUM 3.2 mmol/L (3.6-5.2)
[2019-08-17 12:04] LABS: PLATELET COUNT 226 K/uL (152-353)
[2019-08-18] VITALS (24 sets, daily range): BP systolic 75–147; BP diastolic 40–78; TEMP 97.8–99.1
[2019-08-18 10:00] LABS: PLATELET COUNT 245 K/uL (152-353)
[2019-08-18 10:04] LABS: POTASSIUM 4.2 mmol/L (3.6-5.2)
[2019-08-19] VITALS (19 sets, daily range): BP systolic 83–137; BP diastolic 31–78; TEMP 98.8–99.1
[2019-08-19 05:44] LABS: PLATELET COUNT 231 K/uL (152-353)
[2019-08-20] VITALS (21 sets, daily range): BP systolic 90–139; BP diastolic 34–72; TEMP 98.2–99
[2019-08-21] VITALS (24 sets, daily range): BP systolic 95–154; BP diastolic 27–81; TEMP 97.8–98.5
[2019-08-21 21:28] LABS: POTASSIUM 4.1 mmol/L (3.6-5.2)
[2019-08-22] VITALS (23 sets, daily range): BP systolic 83–166; BP diastolic 38–91; TEMP 97.6–98.9
[2019-08-23] VITALS (23 sets, daily range): BP systolic 97–183; BP diastolic 28–138; TEMP 97.1–99.1
[2019-08-24] VITALS (22 sets, daily range): BP systolic 13–198; BP diastolic 35–87; TEMP 97–98.5
[2019-08-25] VITALS (24 sets, daily range): BP systolic 101–172; BP diastolic 36–88; TEMP 97.1–100.2
[2019-08-25 09:55] LABS: PLATELET COUNT 209 K/uL (152-353)
[2019-08-26] VITALS (24 sets, daily range): BP systolic 83–177; BP diastolic 22–118; TEMP 97.4–99.1
[2019-08-26 06:07] LABS: POTASSIUM 4.3 mmol/L (3.6-5.2)
[2019-08-26 06:18] LABS: PLATELET COUNT 233 K/uL (152-353)
[2019-08-27] VITALS (22 sets, daily range): BP systolic 84–126; BP diastolic 30–77; TEMP 96.4–99.5
[2019-08-27 06:05] LABS: PLATELET COUNT 258 K/uL (152-353)
[2019-08-27 06:22] LABS: POTASSIUM 4.1 mmol/L (3.6-5.2)
[2019-08-28] VITALS (22 sets, daily range): BP systolic 74–147; BP diastolic 31–107; TEMP 97.3–98.6
[2019-08-29] VITALS (24 sets, daily range): BP systolic 85–133; BP diastolic 24–94; TEMP 98–98.8
[2019-08-29 06:13] LABS: PLATELET COUNT 233 K/uL (152-353)
[2019-08-29 06:33] LABS: POTASSIUM 3.8 mmol/L (3.6-5.2)
[2019-08-30] VITALS (12 sets, daily range): BP systolic 97–158; BP diastolic 50–95; TEMP 97.6–98.7
[2019-08-30] MEDS ORDERED: METO50TA63 PO (11:09)
== END 2019-08-30 19:42 | DRG 177 ==
LOC: PCU 23:20 → MED/SURG 23:20 → PCU 08-10 15:50
PROVIDERS: Internal Medicine; Internal Medicine Endocrinology, Diabetes & Metabolism; ADMIT Internal Medicine
DX: U07.1 COVID-19 (principal); J96.01 Acute respiratory failure with hypoxia; J18.8 Other pneumonia, unspecified organism; R65.21 Severe sepsis with septic shock; E87.1 Hypo-osmolality and hyponatremia; N17.9 Acute kidney failure, unspecified; I13.0 Hypertensive heart and chronic kidney disease with heart failure and stage 1 through stage 4 chronic kidney disease, or unspecified chronic kidney disease; I48.20 Chronic atrial fibrillation, unspecified; E46 Unspecified protein-calorie malnutrition; N18.3 Chronic kidney disease, stage 3 (moderate); Z79.01 Long term (current) use of anticoagulants; M10.9 Gout, unspecified; F32.89 Other specified depressive episodes; M81.8 Other osteoporosis without current pathological fracture; E87.6 Hypokalemia; B37.3 Candidiasis of vulva and vagina
CPT/HCPCS: 36415; 36600; 80053; 81000; 81002; 82272; 82550; 82805; 83605; 83630; 83735; 84484; 85027; 87015; 87040; 87045; 87077; 87088; 87324; 87338; 87449; 87899; 93005; 94760; J0696; J1160; J1650; J1940; J2060; J2543; J3475; J3490; J7120

== ENCOUNTER 2019-09-11 10:29 | Emergency (ER) | payer OTHER ==
[~2019-09-11] VITALS: Ht 149.9 cm; Wt 58.5 kg
[2019-09-11 10:29] VITALS: TEMP 97.2
[~2019-09-11 10:29] MED LIST changes: +AZIT250T3 PO; +ELIQUIS5 MG PO; +FLONASE AL50 MCG/ACT NAS; +HYDR200T3 PO; +METO100T37 PO
[2019-09-11 11:22] LABS: PLATELET COUNT 292 K/uL (152-353)
[2019-09-11 11:23] LABS: POTASSIUM 4.3 mmol/L (3.6-5.2); SODIUM 136 mmol/L (136-145)
[2019-09-11 17:20] VITALS: BP 121/68
== END 2019-09-11 17:35 | disposition home or self-care (01) ==
LOC: ED 10:31
PROVIDERS: Family Medicine
DX: N39.0 Urinary tract infection, site not specified (principal); I48.91 Unspecified atrial fibrillation; R06.02 Shortness of breath
CPT/HCPCS: 36415; 80053; 81000; 83880; 84484; 85027; 87086; 87088; 93005; 96360; 96361; 96365; 96375; 96376; 99284; J0696; J3490

== ENCOUNTER 2019-09-15 08:43 | Outpatient (CLI) | payer OTHER | END 2019-09-15 23:37 | disposition home or self-care (01) | LOC: RAD 08:43 | DX: U07.1 COVID-19 (principal) ==

== ENCOUNTER 2019-09-17 11:44 | Inpatient (IN) | payer OTHER | END 2019-10-17 11:55 | disposition still patient (30) | LOC: PAVC 11:44 | PROVIDERS: ADMIT Internal Medicine | DX: N39.0 Urinary tract infection, site not specified (principal); U07.1 COVID-19; R13.12 Dysphagia, oropharyngeal phase; I48.0 Paroxysmal atrial fibrillation; I25.9 Chronic ischemic heart disease, unspecified | CPT/HCPCS: 87635; U0002 ==

== ENCOUNTER 2019-10-17 12:07 | Inpatient (IN) | payer OTHER | END 2019-11-17 10:13 | disposition still patient (30) | LOC: PAVC 12:07 | PROVIDERS: ADMIT Internal Medicine ==

== ENCOUNTER 2019-11-17 10:26 | Inpatient (IN) | payer OTHER | END 2019-12-18 14:01 | disposition still patient (30) | LOC: PAVC 10:26 | PROVIDERS: ADMIT Internal Medicine ==

== ENCOUNTER 2019-12-18 14:37 | Inpatient (IN) | payer OTHER ==
[2020-01-17 06:49] LABS: PLATELET COUNT 232 K/uL (152-353)
== END 2020-01-17 14:08 | disposition still patient (30) ==
LOC: PAVC 14:37
PROVIDERS: ADMIT Internal Medicine
CPT/HCPCS: 82306; 84550; 85027

== ENCOUNTER 2019-12-19 07:08 | Outpatient (CLI) | payer OTHER | END 2019-12-19 23:54 | disposition home or self-care (01) | LOC: LAB 07:08 | DX: E83.52 Hypercalcemia (principal) | CPT/HCPCS: 82310 ==

== ENCOUNTER 2020-01-17 08:40 | Outpatient (CLI) | payer OTHER ==
[2020-01-17 11:26] LABS: POTASSIUM 4.2 mmol/L (3.6-5.2)
== END 2020-01-17 19:46 | disposition home or self-care (01) ==
LOC: LAB 08:40
PROVIDERS: Internal Medicine
DX: I10 Essential (primary) hypertension (principal); I25.9 Chronic ischemic heart disease, unspecified; E55.9 Vitamin D deficiency, unspecified; M81.8 Other osteoporosis without current pathological fracture
CPT/HCPCS: 80053

== ENCOUNTER 2020-01-17 14:59 | Inpatient (IN) | payer OTHER | END 2020-02-17 08:00 | disposition still patient (30) | LOC: PAVC 14:59 | PROVIDERS: ADMIT Internal Medicine ==

== ENCOUNTER 2020-01-31 15:04 | Outpatient (CLI) | payer OTHER | END 2020-01-31 22:19 | disposition home or self-care (01) | LOC: LAB 15:04 | DX: R19.7 Diarrhea, unspecified (principal) | CPT/HCPCS: 83630; 87015; 87045; 87328; 87329; 87899 ==

== ENCOUNTER 2020-02-04 14:27 | Outpatient (CLI) | payer OTHER | END 2020-02-04 22:34 | disposition home or self-care (01) | LOC: RAD 14:27 | DX: R05 Cough (principal); J18.9 Pneumonia, unspecified organism ==

== ENCOUNTER 2020-02-17 09:00 | Inpatient (IN) | payer OTHER | END 2020-03-18 12:24 | disposition still patient (30) | LOC: PAVC 09:00 | PROVIDERS: ADMIT Internal Medicine; ATTEND Internal Medicine ==

== ENCOUNTER 2020-03-18 12:38 | Inpatient (IN) | payer OTHER | END 2020-04-18 09:47 | disposition still patient (30) | LOC: PAVC 12:38 | PROVIDERS: ADMIT Internal Medicine; ATTEND Internal Medicine ==

== ENCOUNTER 2020-04-18 09:59 | Inpatient (IN) | payer OTHER | END 2020-05-19 15:30 | disposition still patient (30) | LOC: PAVC 09:59 | PROVIDERS: ADMIT Internal Medicine; ATTEND Internal Medicine ==

== ENCOUNTER 2020-05-19 15:48 | Inpatient (IN) | payer OTHER | END 2020-06-16 11:15 | disposition still patient (30) | LOC: PAVC 15:48 | PROVIDERS: ADMIT Internal Medicine; ATTEND Internal Medicine ==

== ENCOUNTER 2020-06-16 11:35 | Inpatient (IN) | payer OTHER | END 2020-07-17 11:43 | disposition still patient (30) | LOC: PAVC 11:35 | PROVIDERS: ADMIT Internal Medicine; ATTEND Internal Medicine ==

== ENCOUNTER 2020-07-17 09:46 | Outpatient (CLI) | payer OTHER ==
[2020-07-17 10:09] LABS: PLATELET COUNT 214 K/uL (152-353)
[2020-07-17 10:36] LABS: POTASSIUM 4.1 mmol/L (3.6-5.2)
== END 2020-07-17 21:28 | disposition home or self-care (01) ==
LOC: LAB 09:46
PROVIDERS: ATTEND Internal Medicine
DX: I25.89 Other forms of chronic ischemic heart disease (principal); I10 Essential (primary) hypertension; E55.9 Vitamin D deficiency, unspecified; M10.9 Gout, unspecified
CPT/HCPCS: 80053; 82306; 84550; 85027

== ENCOUNTER 2020-07-17 12:09 | Inpatient (IN) | payer OTHER | END 2020-08-16 11:24 | disposition still patient (30) | LOC: PAVC 12:09 | PROVIDERS: ADMIT Internal Medicine; ATTEND Internal Medicine ==

== ENCOUNTER 2020-08-16 11:37 | Inpatient (IN) | payer OTHER | END 2020-09-16 15:44 | disposition still patient (30) | LOC: PAVC 11:37 | PROVIDERS: ADMIT Internal Medicine; ATTEND Internal Medicine ==

== ENCOUNTER 2020-09-16 16:48 | Inpatient (IN) | payer OTHER ==
[~2020-09-16 16:48] MED LIST changes: -HYDR10TA47A PEG; +HYDR10TA47A PO
[2020-09-18] MEDS ORDERED: ISOS30TA17 PO (23:19)
[2020-09-18] MEDS ORDERED: FURO40TA93 PO (23:21)
[2020-09-18] MEDS ORDERED: LEXAPRO20 MG PO (23:22)
[2020-09-18] MEDS ORDERED: METO25TA2 PO (23:24)
[2020-09-18] MEDS ORDERED: K-TAB20 MEQ PO (23:25)
[2020-09-18] MEDS ORDERED: PANTOPRAZOLE 40MG TA PO (23:26)
[2020-09-18] MEDS ORDERED: ALLO300T23 PO (23:27)
[2020-09-18] MEDS ORDERED: TYLENOL325 MG PO (23:30)
[2020-09-18] MEDS ORDERED: POLYETHYLENE GL17 GM PO (23:48)
[2020-09-18] MEDS ORDERED: NYAMYC100000 UNI TOP (23:59)
[2020-09-19] MEDS ORDERED: IPRATROPIUM/ INH (00:05)
== END 2020-10-16 08:00 | disposition still patient (30) ==
LOC: PAVC 16:48
PROVIDERS: ADMIT Internal Medicine; ATTEND Internal Medicine

== ENCOUNTER 2020-09-18 16:31 | Inpatient (IN) | payer OTHER ==
[~2020-09-18] VITALS: Ht 149.9 cm; Wt 65.5 kg
[2020-09-18 16:31] VITALS: BP 126/98; TEMP 97.6
[2020-09-18 16:48] LABS: PLATELET COUNT 189 K/uL (152-353)
[2020-09-18 16:57] LABS: SODIUM 136 mmol/L (136-145)
[2020-09-18 17:00] LABS: PARTIAL THROMBOPLASTIN TIME 27.1 SECONDS (24.5-33.6)
[2020-09-18 18:04] VITALS: BP 121/68
--- NOTE | 2020-09-18 18:37 | NUR ---
REC'D PT FROM ER VIA [facility]. PT ASSISTED FROM STRETCHER TO BED VS DRAW SHEET. PT AWAKE TELLING STAFF HEY NO ACUTE DISTRESS NOTED. WILL GIVE ER REPORT TO ONCOMING SHIFT
--- NOTE | 2020-09-18 19:40 | NUR ---
ENTERED PATIENT'S ROOM AT THIS TIME. PATIENT LYING IN BED IN LOW CHRISTIANSON'S POSITION. NC INTACT @ 2L/MIN. RESPIRATIONS UNLABORED. 22G TO LEFT HAND INTACT. NO SWELLING OR REDNESS NOTED. PATIENT ALERT BUT NOT ORIENTED TO PLACE, TIME OR SITUATION. INITIAL ASSESSMENT PERFORMED. REDNESS NOTED UNDER LEFT BREAST- NO REDNESS NOTED UNDER RIGHT BREAST OR ABDOMINAL FOLDS. SHE DENIES PAIN. BED LOCKED AND IN LOWEST POSITION. CALL LIGHT WITHIN REACH.
[2020-09-18 20:15] VITALS: BP 109/82; TEMP 97.8; Ht 149.9 cm; Wt 65.5 kg
--- NOTE | 2020-09-18 21:30 | NUR ---
PATIENT RESTING QUIETLY IN BED WITH EYES CLOSED. RESPIRATIONS UNLABORED. NC INTACT. 22G TO LEFT HAND FLUSHED WITH 10CC OF NS WITH NO COMPLICATIONS. NO COMPLAINTS VOICED FROM PATIENT AT THIS TIME. CALL LIGHT WITHIN REACH.
[2020-09-18] MEDS ORDERED: ISOS30TA17 PO (23:19)
[2020-09-18] MEDS ORDERED: FURO40TA93 PO (23:21)
[2020-09-18] MEDS ORDERED: LEXAPRO20 MG PO (23:22)
[2020-09-18] MEDS ORDERED: METO25TA2 PO (23:24)
[2020-09-18] MEDS ORDERED: K-TAB20 MEQ PO (23:25)
[2020-09-18] MEDS ORDERED: PANTOPRAZOLE 40MG TA PO (23:26)
[2020-09-18] MEDS ORDERED: ALLO300T23 PO (23:27)
[2020-09-18] MEDS ORDERED: TYLENOL325 MG PO (23:30)
[2020-09-18] MEDS ORDERED: POLYETHYLENE GL17 GM PO (23:48)
[2020-09-18] MEDS ORDERED: NYAMYC100000 UNI TOP (23:59)
[2020-09-19] VITALS (7 sets, daily range): BP systolic 117–159; BP diastolic 63–94; TEMP 97–98.6
[2020-09-19] MEDS ORDERED: IPRATROPIUM/ INH (00:05)
--- NOTE | 2020-09-19 03:20 | NUR ---
PATIENT RESTING QUIETLY WITH EYES CLOSED. RESPIRATIONS UNLABORED. NAD NOTED. CALL LIGHT WITHIN REACH.
[2020-09-19 07:51] LABS: PLATELET COUNT 166 K/uL (152-353)
[2020-09-19 08:05] LABS: POTASSIUM 3.5 mmol/L (3.6-5.2)
--- NOTE | 2020-09-19 14:02 | NUR ---
UPDATED DR. CHI THAT HOME MEDS IN TO BE REVIEWED.
--- NOTE | 2020-09-20 00:03 | NUR ---
PT'S HEART RATE FLUCTUATING IN BETWEEN 118-160 AT THIS TIME. PT HAS A HX OF A-FIB. PT'S PULSE IS WEAK AND THREADY AND PT SEEMS LETHARGIC AT THIS TIME. NOTIFYING ER PHYSICIAN AT THIS TIME FOR FURTHER INTERVENTION.
--- NOTE | 2020-09-20 00:18 | NUR ---
NOTIFIED ER PHYSICIAN-DR GIRALDO AT THIS TIME OF PT'S TACHYCARDIC EPISODE. PHYSICIAN GAVE A ONE TIME DOSE ORDER OF CARDIZEM 10MG IVP FOR PT'S HEART RATE FLUCTUATING BETWEEN 118-160. TEACHING ARTIST NOTED AND CARRIED OUT ORDER AT THIS TIME. WILL MONITOR FOR MEDICATION EFFECTIVENESS.
--- NOTE | 2020-09-20 00:36 | NUR ---
GAVE CARDIZEM 10MG IVP OVER TWO MINUTES AT THIS TIME. FLUSHED BEFORE AND AFTER WITH NORMAL SALINE. PT. RESTING QUIETLY IN A LOW FOWLERS POSITION AT THIS TIME WITH CALL LIGHT WITHIN REACH. 0045- PT'S CURRENT HEART RATE AT THIS TIME IS 94. PT. STILL RESTING AND SEEMS TO BE IN NO ACUTE DISTRESS. WILL CONTINUE TO MONITOR PT.
[2020-09-20 04:28] VITALS: BP 149/93; TEMP 96.8
[2020-09-20 07:53] LABS: PLATELET COUNT 161 K/uL (152-353)
[2020-09-20 07:59] LABS: POTASSIUM 3.8 mmol/L (3.6-5.2)
--- NOTE | 2020-09-20 08:18 | NUR ---
PO MEDS ADMIN IN PUDDING. PT TOLERATED THICKENED APPLE JUICE AND WAS ABLE TO SWALLOW ALL MEDS BUT ALLOPURINOL, WHICH WERE REMOVED FROM HER MOUTH. PT POSITIONED TO LOW FOWLERS AFTER PO INTAKE.
[2020-09-20 08:29] VITALS: BP 145/79; TEMP 98.2
--- NOTE | 2020-09-20 08:44 | NUR ---
NOTIFIED OF PT URINE C&S NEW ORDERS GIVEN
--- NOTE | 2020-09-20 11:57 | NUR ---
PT HR FLUCTUATING BETWEEN 111 AND 143- DR. CHI NOTIFIED- T/O GIVEN TO ADMIN CARDIZEM 10MG SIVP. UNHAIRING INSPECTOR BY OVER 2MIN AND FOLLOWED WITH 10CC NS FLUSH. PT HR DECREASED TO 82-104.
[2020-09-20 12:02] VITALS: BP 124/87; TEMP 98.4
[2020-09-20 15:58] VITALS: BP 134/67; TEMP 98.4
--- NOTE | 2020-09-20 18:31 | NUR ---
NS IVF STARTED TO INFUSE TO 22G IN LFA AT THIS TIME.
[2020-09-20 19:46] VITALS: BP 144/95; TEMP 98.7
--- NOTE | 2020-09-20 20:14 | NUR ---
ROUNDS MADE. PT CONTINUES TO HAVE IRREGULAR HR 101 TO 115 BPM. PT COMPLAINS OF PAIN ALL OVER. VITALS SIGNS WERE TAKEN. BP IS 144/95. PT TO RECEIVE CARDIZEM PO WITH 21:00PM MED PASS. PT WAS ASSESSED. PT WILL BE CHECKED ON FREQUENTLY. [facility] FROM [facility] AND PT STATUS IS DNR.
--- NOTE | 2020-09-20 22:39 | NUR ---
PT IS RESTING WITH EYES CLOSED. PT IS IN SF POSITION TO AVOID ASPIRATION. HR IS MORE REGULAR AND SLOWER AFTER THE CARDIZEM PO. MONITORING TELEMETRY AND PT.
--- NOTE | 2020-09-20 23:04 | NUR ---
HEART RATE OF 89. PT UNABLE TO TAKE 2200 PM MEDICATION.PT IS RESTING AND DROWSY.
[2020-09-21] VITALS (7 sets, daily range): BP systolic 99–123; BP diastolic 59–88; TEMP 97.5–100.4
--- NOTE | 2020-09-21 01:00 | NUR ---
PT WAS ASSESSED. PT HAD VOIDED. PT WAS CHANGED AND CLEAN BRIEFS WERE APPLIED. NO SKIN BREAKDOWN NOTED TO BUTTOCKS OR LUZ AREA. PT WAS TURNED TO HER LEFT SIDE. PT IN 90 DEGREE POSITION TO PREVENT ASPIRATION.
[2020-09-21 07:26] LABS: PLATELET COUNT 155 K/uL (152-353)
[2020-09-21 07:33] LABS: POTASSIUM 4.2 mmol/L (3.6-5.2)
--- NOTE | 2020-09-22 01:54 | NUR ---
PT CONTINUES TO REST. EASILY AROUSES. PT CONTINUES TO HAVE CRACKLES IN UPPER AREAS OF LUNG. THROAT AREA WITH SECRETIONS. PT UNABLE TO COUGH UP. PT IS WEARING OXYGEN AT 4L. PT DNR STATUS.
[2020-09-22 04:16] VITALS: BP 112/89; TEMP 101.2
--- NOTE | 2020-09-22 05:00 | NUR ---
PT WAS GIVEN LUKEWARM BATH TO ASSIST IN COOLING DOWN TEMPERATURE. PT HAD HAD 6 SATURATED DEPENDS AT PRESENT. PT IS RESPONSIVE. HR IS AT 112.
--- NOTE | 2020-09-22 05:05 | NUR ---
RECHECKED PT'S TEMPERATURE. 99.2.
[2020-09-22 05:37] LABS: PLATELET COUNT 155 K/uL (152-353)
[2020-09-22 05:51] LABS: POTASSIUM 3.7 mmol/L (3.6-5.2)
--- NOTE | 2020-09-22 07:44 | NUR ---
SPO2 AT 98% ON 4.5LPM NC. RT DECRASED TO 3.5LPM NC. SPO2 AT 96% WILL CONTINUE TO MONITOR AND WEAN TO KEEP SPO2 >92% PER PHYSICIAN ORDER.
[2020-09-22 08:00] VITALS: BP 119/76; TEMP 97.6
--- NOTE | 2020-09-22 10:00 | NUR ---
PT IN HIGH FOWLERS POSITION IN BED. A&O TO PERSON AND PLACE. NAD NOTED. CRACKLES AUDIBLE DURING LUNG ASSESSMENT, MORE AUDIBLE TO RUL AND RLL. MEDS WERE CRUSHED AND MIXED IN PUDDING AND PT TOLERATED WELL WITH NO DIFFICULTY. THICKNER ADDED TO JUICE AND PT TOLERATED WELL. PT DENIES ANY PAIN. IV SITE PATENT WITH NO REDNESS NOTED TO SITE. PT COMPLIANT WITH TX.
--- NOTE | 2020-09-22 11:22 | NUR ---
SPO2 AT 99%. DECREASED FIO2 TO 2LPM NC. WILL CONTINUE TO MONITOR AND DECREASED TO KEEP SPO2 >92%
[2020-09-22 12:00] VITALS: BP 110/60; TEMP 99.2
--- NOTE | 2020-09-22 13:13 | NUR ---
PT IN HIGH FOWLERS POSITION IN BED. PT STATED MY HEAD IS ABOUT TO BURST. ASSESSED PT LOWER EXTREMITIES. NO DISCOLORATION NOTED TO BILATERAL FEET. GOOD CAPILLARY REFILL TO BILATERAL FEET AND PT NOT SENSITIVE TO TOUCH BILATERAL FEET AND ABLE TO MOVE TOES VOLUNTARILY. IV SITE TO LEFT WRIST HAS NO SWELLING OR REDNESS NOTED. FLUSHES WITH EASE. IVF INFUSING ORDERED. NAD NOTED.
[2020-09-22 16:00] VITALS: BP 100/62; TEMP 97.1
--- NOTE | 2020-09-22 17:29 | NUR ---
PT IN BED IN HIGH FOWLERS POSITION. PT REQUESTED SOMETHING TO DRINK, STATED I'M THIRSTY AND WANTED TO EAT HER DESSERT FROM LUNCH AND WAS FED DESSERT,PT ATE 100% OF IT AND HAD TEA WITH THICKNER ADDED TO IT. IVF INFUSING ORDERED. NO SWELLING OR REDNESS NOTED TO IV SITE AT LEFT WRIST. FLUSHES WITH NO DIFFICULTY.
[2020-09-22 20:00] VITALS: BP 116/72; TEMP 98.7
--- NOTE | 2020-09-22 20:10 | NUR ---
PATIENT RESTING QUIETLY IN BED WITH EYES CLOSED. NC INTACT @ 2L/MIN. PATIENT ALERT TO TOUCH. APPEARS DROWSY/SLEEPY. QUESTIONS WERE ASKED MULTIPLE TIMES BEFORE PATIENT WOULD RESPOND. COURSE CRACKLES NOTED ON RESPIRATIONS. ENCOURAGED PATIENT TO COUGH. I ALSO ENCOURAGED PATIENT TO TRY TO LET ME USE SUCTION TO HELP WITH THE BUILD-UP OF SECRETIONS. SHE ADADMANTLY DECLINED. SHE ALSO REFUSED TO LET ME PERFORM ANY MOUTH CARE ON HER. MEDICATIONS CRUSHED AND GIVEN WITH APPLESAUCE AND NECTAR-THICKENED LIQUIDS. HOB ELEVATED TO HIGH CHRISTIANSON'S. 22G TO LEFT WRIST INTACT. NO SWELLING OR REDNESS NOTED. NS INFUSING @ 75ML/HR. BED LOCKED AND IN LOWEST POSITION. CALL LIGHT WITHIN REACH. BLE ELEVATED.
--- NOTE | 2020-09-22 20:52 | NUR ---
PATIENT'S SON, SARAH BETH HARPER (EMERGENCY CONTACT), CALLED FOR AN UPDATE ON PATIENT. I INFORMED HIM THAT SHE WAS SLEEPING AND DIDN'T SAY MUCH. HE VERBALIZED UNDERSTANDING. STATES HE WOULD CALL BACK TOMORROW.
--- NOTE | 2020-09-22 23:30 | NUR ---
PATIENT RESTING QUIETLY IN BED. NC INTACT @ 2L/MIN. NAD NOTED. HOB ELEVATED APPROX. 30 DEGREES. BED LOCKED AND IN LOWEST POSITION.
[2020-09-23] VITALS: BP 128/69; TEMP 97.9
--- NOTE | 2020-09-23 01:15 | NUR ---
PATIENT RESTING QUIETLY IN BED. NC INTACT. HOB ELEVATED. NAD NOTED. CALL LIGHT WITHIN REACH.
[2020-09-23 04:00] VITALS: BP 129/77; TEMP 98.3
--- NOTE | 2020-09-23 05:15 | NUR ---
PATIENT RESTING QUIETLY WITH EYES CLOSED. NC INTACT. 22G TO LEFT WRIST INTACT. NO SWELLING OR ERYTHEMA NOTED. NS INFUSING @ 75ML/HR. PATIENT REQUESTING DIET COKE. THICKENER MIXED WITH DIET COKE AND I ASSISTED PATIENT WITH DRINKING. PATIENT TOLERATED WELL. SLIGHT COUGH NOTED EVEN WITH SMALL SIPS. PATIENT STATES SHE WAS HAPPY TO HAVE DIET COKE. IN LOW CHRISTIANSON'S POSITION. CALL LIGHT WITHIN REACH.
[2020-09-23 05:25] LABS: PLATELET COUNT 164 K/uL (152-353)
[2020-09-23 05:37] LABS: POTASSIUM 3.7 mmol/L (3.6-5.2)
--- NOTE | 2020-09-23 06:00 | NUR ---
PT RESTING QUIETLY IN BED WITH EYES CLOSED. NAD NOTED. CALL LIGHT WITHIN REACH. HOB ELEVATED SLIGHTLY @ 30 DEGREES.
--- NOTE | 2020-09-23 07:45 | NUR ---
INFORMED PER DR CHI PT WOULD GO BACK TO [facility] TODAY WITH MEROPEN[facility] X 5 DAYS
[2020-09-23 08:00] VITALS: BP 120/80; TEMP 97.9
--- NOTE | 2020-09-23 11:00 | NUR ---
PT DISCHARGED AND WILL RETURN TO [facility]. EMS NOTIFIED TO TRANSPORT PT. NOTIFIED NURSE RENZO AT THE [facility] TO GIVE REPORT ON PT. PT WILL CONTINUE IV SITE TO LEFT WRIST WITH 22GA TO ADMINISTER IV ANTIBIOTICS ORDERED. IV SITE PATENT AND NO REDNESS OR SWELLING NOTED TO SITE. NAD NOTED. DISCHARGED INSTRUCTIONS VERBALIZED TO NURSE RENZO AND WRITTEN INSTRUCTIONS WILL BE SENT WITH PT BACK TO [facility].
--- NOTE | 2020-09-23 12:25 | NUR ---
EMS ARRIVED TO TRANSPORT PT BACK TO FACILITY VIA [facility]ER. PT DEPENDS WAS CHANGED PRIOR TO TRANSPORT. TELEMETRY DISCONTINUED. IV SITE TO LEFT WRIST INTACT WITH NO SWELLING AND REDNESS NOTED. PT AWAKE AND ALERT. NAD NOTED. DISCHARGE INSTRUCTIONS GIVEN TO EMS TO TAKE WITH PT.
== END 2020-09-23 12:35 | DRG 690 ==
LOC: ED 16:31 → MED/SURG 18:06
PROVIDERS: Family Medicine; ADMIT Internal Medicine Endocrinology, Diabetes & Metabolism; ATTEND Internal Medicine Endocrinology, Diabetes & Metabolism
DX: N30.00 Acute cystitis without hematuria (principal); Z16.24 Resistance to multiple antibiotics; N18.4 Chronic kidney disease, stage 4 (severe); B96.29 Other Escherichia coli [E. coli] as the cause of diseases classified elsewhere; I48.91 Unspecified atrial fibrillation; D64.89 Other specified anemias; Z79.01 Long term (current) use of anticoagulants; K21.9 Gastro-esophageal reflux disease without esophagitis; G89.4 Chronic pain syndrome
CPT/HCPCS: 36415; 80048; 80053; 81000; 82550; 84484; 85027; 85610; 85730; 87040; 87077; 87086; 87088; 87186; 87635; 93005; 94760; 96365; 96375; 99284; J0696; J2185; J3490; U0003

== ENCOUNTER 2020-10-03 12:55 | Outpatient (CLI) | payer OTHER ==
[~2020-10-03 12:55] MED LIST changes: +IPRATROPIUM/ INH; +K-TAB20 MEQ PO; +LEXAPRO20 MG PO; +METO25TA2 PO; +NYAMYC100000 UNI TOP; +POLYETHYLENE GL17 GM PO; +TYLENOL325 MG PO
== END 2020-10-03 23:59 | disposition home or self-care (01) ==
LOC: RAD 12:55
PROVIDERS: ATTEND Internal Medicine
DX: J12.9 Viral pneumonia, unspecified (principal)

== ENCOUNTER 2020-10-16 09:00 | Inpatient (IN) | payer OTHER | END 2020-11-15 08:00 | disposition E | LOC: PAVC 09:00 | PROVIDERS: ADMIT Internal Medicine; ATTEND Internal Medicine ==

== ENCOUNTER 2020-10-25 18:29 | Emergency (ER) | payer OTHER ==
[~2020-10-25] VITALS: Ht 149.9 cm; Wt 65.3 kg
[2020-10-25 19:07] LABS: PLATELET COUNT 190 K/uL (152-353)
[2020-10-25 20:27] LABS: POTASSIUM 4.3 mmol/L (3.6-5.2); SODIUM 138 mmol/L (136-145)
[2020-10-25 20:48] LABS: PARTIAL THROMBOPLASTIN TIME 28.7 SECONDS (24.5-33.6)
[2020-10-26 03:00] VITALS: BP 148/78; TEMP 99
== END 2020-10-26 03:00 ==
LOC: ED 18:29
PROVIDERS: Family Medicine
DX: I48.91 Unspecified atrial fibrillation (principal)
CPT/HCPCS: 36415; 80053; 82550; 84484; 85027; 85610; 85730; 93005; 96360; 96375; 96376; 99284; J3490

== ENCOUNTER 2020-11-14 18:34 | Inpatient (IN) | payer OTHER ==
[2020-11-14] VITALS (9 sets, daily range): BP systolic 147–180; BP diastolic 86–126; TEMP 99.6
[~2020-11-14] VITALS: Ht 149.9 cm; Wt 62.7 kg
[2020-11-14 19:42] LABS: POTASSIUM 3.8 mmol/L (3.6-5.2); SODIUM 152 mmol/L (136-145)
[2020-11-14 19:54] LABS: PLATELET COUNT 135 K/uL (152-353)
[2020-11-15] VITALS: BP 159/86
[2020-11-15 00:25] VITALS: BP 150/78
[2020-11-15 00:36] VITALS: BP 148/73; TEMP 98.2; Ht 149.9 cm; Wt 62.7 kg
[2020-11-15 04:00] VITALS: BP 148/79; TEMP 98.1
== END 2020-11-15 15:33 | disposition expired | DRG 193 ==
LOC: ED 18:34 → MED/SURG 23:55
PROVIDERS: ADMIT Family Medicine; ATTEND Internal Medicine Endocrinology, Diabetes & Metabolism
DX: J18.8 Other pneumonia, unspecified organism (principal); G92 Toxic encephalopathy; N17.8 Other acute kidney failure; N39.0 Urinary tract infection, site not specified; I10 Essential (primary) hypertension; M10.9 Gout, unspecified; I48.91 Unspecified atrial fibrillation; I25.10 Atherosclerotic heart disease of native coronary artery without angina pectoris; M81.8 Other osteoporosis without current pathological fracture; Z86.16 Personal history of COVID-19; B96.20 Unspecified Escherichia coli [E. coli] as the cause of diseases classified elsewhere; B96.4 Proteus (mirabilis) (morganii) as the cause of diseases classified elsewhere
CPT/HCPCS: 36415; 80053; 80162; 81000; 84484; 85027; 87040; 87077; 87086; 87088; 87185; 87186; 87205; 87635; 93005; 94640; 94664; 94760; 96360; 96365; 96375; 99284; J0360; J0696; J1940; J3490; U0003